=== PATIENT | male | born 1985 | race Caucasian/White ===

== ENCOUNTER 2017-07-13 21:57 | Emergency (ER) | payer OTHER ==
[~2017-07-13] VITALS: Ht 177.8 cm; Wt 103.7 kg
[2017-07-13 22:05] VITALS: TEMP 36.7; Ht 177.8 cm; Wt 103.7 kg
[2017-07-13] MEDS ORDERED: MoRPHine SULFATE 10 MG/ML CARP/VIAL IM STA (22:37)
[2017-07-13] MEDS ORDERED: XYLOCAINE 1%/SOD BICARB 20 ML VIAL INFIL ONE (22:45)
[2017-07-13] MEDS ORDERED: LIDOCAINE/EPINEPHRINE 1% 20 ML VIAL INFIL ONE (22:45)
[2017-07-13] MEDS ORDERED: MoRPHine SULFATE 4 MG/ML 1 ML CARP\\VIAL ONE (22:48)
[2017-07-13] MEDS ORDERED: DIPHTHERIA/TETANUS/PERTUSSIS 0.5 ML SYR/VIAL IM. ONE (23:30)
[2017-07-14 00:55] VITALS: BP 161/101; PULSE 89
[2017-07-14] MEDS ORDERED: CEPHALEXIN 500MG HOME PACK 1 EA BTL PO ONE (01:00)
[2017-07-14] MEDS ORDERED: CEPH500C PO (01:07)
--- NOTE | 2017-07-14 01:08 | EMERGENCY ROOM VISIT NOTE ---
History First contact with patient: 22:16 Chief Complaint: LACERATION/CUT (NON-SUTURE) Stated Complaint: CUT LF HAND W/CIRCULAR SAW Nursing Triage Summary: Cut left hand with circular saw History of Present Illness The patient is a 32 year old male who presents to the Emergency Room with complaints of a laceration of the left hand. The patient states that just prior to arrival, he was using a circular saw and it kicked back and cut his left hand. He reports 10/10 pain in the hand. He denies any numbness, tingling or weakness. He is unsure of his tetanus status. He denies any active bleeding. Review of Systems A complete 10 point review of systems was reviewed with the patient with pertinent positives and negatives as per history of present illness. All else were negative. Past Medical/Surgical History Medical Problems: (1) Hypertension Family History Heart disease Kidney disease Social History Smoking Status: Current Every Day Smoker Drug Use: none Marital Status: single Housing Status: lives with significant other Occupation Status: employed Current/Historical Medications Scheduled Cephalexin Monohydrate (Keflex), 500 MG PO QID Physical Exam Vital Signs Date Time Temp Pulse Resp B/P (MAP) Pulse Ox O2 Delivery O2 Flow Rate FiO2 07/14/17 01:50 18 99 07/14/17 00:55 89 19 161/101 99 07/13/17 22:05 36.7 84 18 168/102 97 Room Air Physical Exam VITALS: Vitals are noted on the nurse's note and reviewed by myself. Vital signs stable. GENERAL: This is a 32-year-old male, in no acute distress, nondiaphoretic, well- developed well-nourished. SKIN: There is a 6 cm jagged laceration across the left thenar eminence. The laceration extends down to the muscle, but there is no obvious injury to the muscle. There is no obvious tendon injury. There is no active bleeding. MUSCULOSKELETAL: Full range of motion of the left hand and no fingers. Strength in the left thumb 5/5. NEURO: Patient was alert and oriented to person place and time. Normal sensation to light and sharp touch. Medical Decision & Procedures ER Provider Diagnostic Interpretation: HAND X-RAY: Soft tissue injury with no fracture or foreign body. Medications Administered Medications (Trade) Dose Ordered Sig/It Route Start Time Stop Time Status Last Admin Dose Admin Morphine Sulfate (MoRPHine SULFATE INJ) 8 mg STK-MED ONCE .ROUTE 07/13/17 22:48 07/13/17 22:49 DC 07/13/17 22:50 8 MG Diphtheria/ Pertussis/Tetanus Vacc (Adacel Inj) 0.5 ml ONCE ONCE IM. 07/13/17 23:30 07/13/17 23:31 DC 07/13/17 23:30 0.5 ML Cephalexin Monohydrate (Keflex 500MG Home Pack) 1 homepack NOW ONCE PO 07/14/17 01:00 07/14/17 01:04 DC 07/14/17 01:00 1 HOMEPACK Procedure Verbal consent was obtained to perform the procedure. Using sterile technique the wound was cleaned with Betadine. The area was sterilely draped. 8 ml of 1 % buffered lidocaine was used to anesthetize the left hand laceration. Once the patient was anesthetized, the wound was copiously irrigated under pressure with sterile saline. The wound was explored as noted in the physical exam. The laceration was repaired using 9 simple interrupted 4-0 nylon sutures with the wound edges being well approximated. The patient tolerated the procedure well. Hemostasis was achieved. No complications were met. Medical Decision The patient was evaluated as above. He was given morphine for pain. He sustained a laceration to the left hand. This does appear to be down to the muscle, but there is no obvious muscle injury or tendon injury. Strength is normal on exam. Laceration was repaired as above. He was given an Adacel booster. Patient will be placed on Keflex due to the depth of the laceration. He does have a documented allergy to penicillin, but does not recall ever having an allergic reaction to penicillin. He was placed in a Velcro thumb spica splint and instructed to follow-up with the hand surgeon. He was encouraged to return here for any signs of infection or other new/concerning symptoms. He verbalized understanding of my assessment and treatment plan and was discharged home in good condition. Blood Pressure Screening Patient's blood pressure: Elevated blood pressure Blood pressure disposition: Elevated BP felt to be situational Impression Primary Impression: Laceration of hand Departure Information Dispostion Home / Self-Care Condition GOOD Prescriptions Cephalexin Monohydrate (Keflex) 500 Mg Cap 500 MG PO QID for 7 Days, #28 CAP Prov: Nayely Lee ., LICHA 07/14/17 Referrals Glenn Sevilla M.D. (PCP) Cullen Heart MD Patient Instructions My [facility] Additional Instructions You have received 9 sutures on your hand. These sutures are NOT dissolvable and WILL need to be removed by a health care provider. You will need follow-up with the hand surgeon, Dr. Heart prior to this. Call this number to schedule follow-up tomorrow morning. You were prescribed Keflex to be taken 4 times daily for 7 days. This is an antibiotic. All antibiotics have the potential to cause diarrhea. Stop this medication and contact a medical provider if you were to develop any significant adverse side effects including: wheezing, shortness of breath, passing out, vomiting, or a diffuse rash. Always take antibiotics as directed and COMPLETE the ENTIRE course regardless of the improvement of your symptoms. Proper wound care is essential for adequate wound healing and infection prevention. You can shower and clean the wound with soap and water. Do not scour over the wound, pat dry with a towel. Do not submerse the wound (i.e. bathe or dish wash) until the sutures have been removed. You can use an antibiotic ointment with a dressing over the wound for the next 3-4 days. After this time you may leave the wound dry and open to the air. If crust develops over the wound you can use a Q-tip to apply a 1:1 peroxide:water solution to clean the wound. Look for signs of infection of the wound including: increased pain, swelling, foul discharge, streaking, or increased temperature. If any of these are noticed you should return to the Emergency Department for further assessment and treatment. As with any laceration you may have received nerve damage to the surrounding tissues. This damage may or may not be permanent. You should keep the area covered with sunscreen for the first 6 months to 1 year when at risk for exposure to help minimize scarring. You can also use scar reducing creams or Vitamin E oil to help minimize scarring. For pain control, you can use the following [id number] medicines (if >12 yo): - Regular strength (325mg/tab) Tylenol (acetaminophen) 2 tabs every 4-6 hours as needed. Do not exceed 12 tablets in a 24 hour period. Avoid taking more than 4 grams (4000 mg) of Tylenol per day. This includes any other sources of acetaminophen you may take on a regular basis. - Regular strength (200 mg/tab) Advil (ibuprofen) 1-2 tabs every 4-6 hours as needed. Do not exceed a dose of 3200 mg per day. Keep the splint in place until follow-up with Dr. Heart. You may remove the splint to shower and wash the hand. Return to the emergency department if your symptoms worsen despite treatment course outlined above. Problem Qualifiers Primary Impression: Laceration of hand Encounter type: initial encounter Foreign body presence: without foreign body Laterality: left Qualified Codes: S61.412A - Laceration without foreign body of left hand, initial encounter
[2017-07-14 01:50] VITALS: O2SAT 99
--- NOTE | 2017-07-14 06:51 | DIAGNOSTIC IMAGING REPORT ---
LEFT HAND MIN 3 VIEWS ROUTINE HISTORY: 32 years-old Male acute left hand laceration COMPARISON: None available TECHNIQUE: 3 views of the left hand FINDINGS: There is positive ulnar variance of 5 mm. Mild degenerative changes are seen within the first carpal metacarpal joint. No acute fracture or dislocation is identified. There is moderate soft tissue swelling along the lateral aspect of the first digit with subcutaneous emphysema and skin irregularity compatible with penetrating trauma. There is no radiopaque foreign body identified. IMPRESSION: 1. Moderate soft tissue swelling with skin irregularity and subcutaneous emphysema involving the lateral aspect of the first digit compatible with history of penetrating injury. No acute bony abnormality or radiopaque foreign body. 2. Incidental note is made of 5 mm positive ulnar variance which has been reported to contribute to ulnar impaction syndrome and TFCC pathology. The above report was generated using voice recognition software. It may contain grammatical, syntax or spelling errors. Electronically signed by: Michael Blanton M.D. 07/14/2017 6:49 AM Dictated Date/Time: 07/14/2017 6:46 AM
== END 2017-07-14 01:50 | disposition home or self-care (01) ==
LOC: C.EDB 21:58 → C.EDC 07-14 01:50
DX: S61.412A Laceration without foreign body of left hand, initial encounter (principal); W31.2XXA Contact with powered woodworking and forming machines, initial encounter; Z23 Encounter for immunization; I10 Essential (primary) hypertension; F17.200 Nicotine dependence, unspecified, uncomplicated; Z82.49 Family history of ischemic heart disease and other diseases of the circulatory system; Z84.1 Family history of disorders of kidney and ureter

== ENCOUNTER 2017-12-30 11:38 | Inpatient (IN) | payer OTHER ==
[~2017-12-30] VITALS: Ht 177.8 cm; Wt 80.0 kg
[2017-12-30] MEDS ORDERED: SODIUM CHLORIDE 0.9% 1000ML 1,000 ML IV STA ×2 (12:30→13:44)
[2017-12-30] MEDS ORDERED: ONDANSETRON INJ 2 MG/ML 2 ML VIAL IV STA (12:37)
[2017-12-30] MEDS ORDERED: KETOROLAC TROMETHAMINE 30 MG/ML VIAL IV STA (12:37)
--- NOTE | 2017-12-30 12:46 | EMERGENCY ROOM VISIT NOTE ---
History Report prepared by Jesica: Mynor Finch Under the Supervision of: Dr. Keshav Massey M.D. First contact with patient: 11:58 Chief Complaint: DIZZY Stated Complaint: DIZZY Nursing Triage Summary: pt to the ED with c/o dizziness with gets worse with movement pt brought to triage in wheelchair and stated that he is going ot pass out, pt became diaphoretic and then passed out in triage, pt taken to room A2 and placed on cardiac rn History of Present Illness The patient is a 32 year old male with a past medical history of CKD, and HTN who presents to the Emergency Room with complaints of waxing and waning dizziness beginning a few days ago. His dizziness is worsened with movement. The patient also complains of nausea and sinus congestion. He vomited once this morning. Per significant other, the patient passed out upon arrival to the ED today. She states that he was already in his wheelchair at this time, and did not fall or hit his head. The patient did not have a flu shot this year. He denies sore throat, or cough. He states that he has not been eating or drinking much recently. The patient notes that he has a history of IV drug abuse, and recently got out of rehab. Source of History: patient Onset: A few days ago Quality: other (dizziness) Timing: waxes/wanes Modifying Factors (Worsening): movement Associated Symptoms: + nausea, No sorethroat, No cough Note: Additional symptoms: sinus congestion. Review of Systems See HPI for pertinent positives and negatives. A total of ten systems were reviewed and were otherwise negative. Past Medical & Surgical Medical Problems: (1) Hypertension Family History Heart disease Kidney disease Social History Smoking Status: Current Every Day Smoker Drug Use: none Marital Status: single Housing Status: lives with significant other Occupation Status: employed Current/Historical Medications Scheduled [Blood Pressure], Unknown Dose PO UD Allergies Coded Allergies: Brompheniramine (Verified Allergy, Unknown, 12/30/17) Penicillins (Verified Allergy, Unknown, unknown, 12/30/17) Phenylpropanolamine (Verified Allergy, Unknown, 12/30/17) Physical Exam Vital Signs Date Time Temp Pulse Resp B/P (MAP) Pulse Ox O2 Delivery O2 Flow Rate FiO2 12/30/17 14:55 98 Room Air 12/30/17 14:37 82 20 119/88 98 Room Air 12/30/17 12:53 75 16 106/68 12/30/17 12:23 72 12/30/17 11:55 98 Room Air 12/30/17 11:39 36.4 70 20 109/73 98 Physical Exam GENERAL: Awake, appears under the weather. Arousable. NAD HENT: Normocephalic, atraumatic. EYES: Normal conjunctiva. Sclera non-icteric. NECK: Supple. No nuchal rigidity. FROM. RESPIRATORY: CTAB, no rhonchi, wheezing, crackles CARDIAC: RRR, no MRG ABDOMEN: Soft, NTND, BS+ MSK: No chest wall TTP, no LE edema NEURO: CN 2-12 intact, 5/5 upper and lower extremity strength, no dysmetria, no drift, good finger to nose, no sensory deficits. SKIN: No rash or jaundice noted. Medical Decision & Procedures ER Provider Diagnostic Interpretation: Radiology results as stated below per my review and radiologist interpretation: CHEST ONE VIEW PORTABLE FINDINGS: Cardiomediastinal silhouette normal. Lungs and pleural spaces clear. Osseous structures normal. Upper abdomen normal. IMPRESSION: 1. No acute cardiopulmonary disease. Electronically signed by: Mark Byrd M.D. 12/30/2017 1:11 PM (RENAL)RETROPERITON COMP, DUPLEX RENAL ARTERY FINDINGS: Right kidney: Echogenic parenchyma. A 2.1 cm anechoic cyst noted at the lower pole essentially with a single thin septation (Bosniak 2). Right kidney measures 10.6 cm. No hydronephrosis. No convincing evidence of calculus or mass. Intrarenal resistive indices range from 0.55 to 0.68. Normal intrarenal arterial waveforms. Renal artery patent with peak systolic velocity 34 cm/s proximally, 32 cm/s in the midportion, and 31 cm/s distally. Renal vein patent. Left kidney: Echogenic parenchyma. Possible cyst in the interpolar region. Left kidney measures 9.7 cm. No hydronephrosis. No convincing evidence of calculus or mass. Intrarenal resistive indices range from 0.52 to 0.59. Normal intrarenal arterial waveforms. Renal artery patent with peak systolic velocity 51 cm/s proximally, 35 cm/s in the midportion, and 31 cm/s distally. Renal vein patent. Abdominal aorta: Patent. Peak systolic velocity 107 cm/s. Ratio of right renal artery PSV/aortic PSV: 0.32. Ratio of left renal artery PSV/aortic PSV: 0.48. Bladder: Circumferential wall thickening suggested allowing for underdistention. Other: None. Reference ranges: Normal main renal artery peak systolic velocity less than 180 cm/s. Ratio of renal artery PSV to aortic PSV less than 3.5 equates to normal or less than 60% stenosis. IMPRESSION: 1. Circumferential bladder wall thickening could be due to underdistention or suggest cystitis correlate with urinalysis. 2. Echogenic renal parenchyma suggests medical renal disease. No hydronephrosis. 3. No evidence of renal artery stenosis. Patent renal arteries and veins. 4. Normal intrarenal resistive indices. Electronically signed by: Mark Byrd M.D. 12/30/2017 4:59 PM Laboratory Results 12/30/17 12:50 Red Blood Count 5.38, Mean Corpuscular Volume 87.5, Mean Corpuscular Hemoglobin 30.3, Mean Corpuscular Hemoglobin Concent 34.6, Mean Platelet Volume 11.0, Neutrophils (%) (Auto) 82.8, Lymphocytes (%) (Auto) 9.6, Monocytes (%) (Auto) 6.6, Eosinophils (%) (Auto) 0.6, Basophils (%) (Auto) 0.2, Neutrophils # (Auto) 10.30, Lymphocytes # (Auto) 1.19, Monocytes # (Auto) 0.82, Eosinophils # (Auto) 0.07, Basophils # (Auto) 0.02 12/30/17 12:50 Test 12/30/17 12:00 12/30/17 12:40 12/30/17 12:50 12/30/17 14:55 Influenza Type A Antigen Neg for Influ A (NEG) Influenza Type B Antigen Neg for Influ B (NEG) Erythrocyte Sedimentation Rate 27 mm/hr (0-14) White Blood Count 12.43 K/uL (4.8-10.8) Red Blood Count 5.38 M/uL (4.7-6.1) Hemoglobin 16.3 g/dL (14.0-18.0) Hematocrit 47.1 % (42-52) Mean Corpuscular Volume 87.5 fL (80-100) Mean Corpuscular Hemoglobin 30.3 pg (25-34) Mean Corpuscular Hemoglobin Concent 34.6 g/dl (32-36) Platelet Count 274 K/uL (130-400) Mean Platelet Volume 11.0 fL (7.4-10.4) Neutrophils (%) (Auto) 82.8 % Lymphocytes (%) (Auto) 9.6 % Monocytes (%) (Auto) 6.6 % Eosinophils (%) (Auto) 0.6 % Basophils (%) (Auto) 0.2 % Neutrophils # (Auto) 10.30 K/uL (1.4-6.5) Lymphocytes # (Auto) 1.19 K/uL (1.2-3.4) Monocytes # (Auto) 0.82 K/uL (0.11-0.59) Eosinophils # (Auto) 0.07 K/uL (0-0.5) Basophils # (Auto) 0.02 K/uL (0-0.2) RDW Standard Deviation 39.8 fL (36.4-46.3) RDW Coefficient of Variation 12.4 % (11.5-14.5) Immature Granulocyte % (Auto) 0.2 % Immature Granulocyte # (Auto) 0.03 K/uL (0.00-0.02) Anion Gap 10.0 mmol/L (3-11) Est Creatinine Clear Calc Drug Dose 16.4 ml/min Estimated GFR () 11.7 Estimated GFR (Non- 10.1 BUN/Creatinine Ratio 9.4 (10-20) Calcium Level 9.2 mg/dl (8.5-10.1) Phosphorus Level 2.9 mg/dl (2.5-4.9) Magnesium Level 3.6 mg/dl (1.8-2.4) Total Bilirubin 0.9 mg/dl (0.2-1) Direct Bilirubin 0.2 mg/dl (0-0.2) Aspartate Amino Transf (AST/SGOT) 12 U/L (15-37) Alanine Aminotransferase (ALT/SGPT) 19 U/L (12-78) Alkaline Phosphatase 110 U/L (45-117) Troponin I < 0.015 ng/ml (0-0.045) C-Reactive Protein < 0.29 mg/dl (0-0.29) Total Protein 8.6 gm/dl (6.4-8.2) Albumin 4.2 gm/dl (3.4-5.0) Thyroid Stimulating Hormone (TSH) 0.370 uIu/ml (0.300-4.500) Urine Color YELLOW Urine Appearance CLEAR (CLEAR) Urine pH 8.5 (4.5-7.5) Urine Specific [place]lin 1.015 (1.000-1.030) Urine Protein 1+ (NEG) Urine Glucose (UA) NEG (NEG) Urine Ketones TRACE (NEG) Urine Occult Blood NEG (NEG) Urine Nitrite NEG (NEG) Urine Bilirubin NEG (NEG) Urine Urobilinogen NEG (NEG) Urine Leukocyte Esterase TRACE (NEG) Urine WBC (Auto) 5-10 /hpf (0-5) Urine RBC (Auto) 0-4 /hpf (0-4) Urine Hyaline Casts (Auto) 1-5 /lpf (0-5) Urine Epithelial Cells (Auto) 20-30 /lpf (0-5) Urine Bacteria (Auto) NEG (NEG) Urine Pathogenic Casts 0-3 GRANULAR CASTS /lpf (0) Test 12/30/17 15:02 Laboratory results reviewed by me Medications Administered Medications (Trade) Dose Ordered Sig/Ti Route Start Time Stop Time Status Last Admin Dose Admin Sodium Chloride 1,000 ml @ 999 mls/hr Q1H1M STAT IV 12/30/17 12:30 12/30/17 13:30 DC 12/30/17 12:51 999 MLS/HR Ketorolac Tromethamine (Toradol Inj) 30 mg NOW STAT IV 12/30/17 12:37 12/30/17 12:38 DC 12/30/17 12:51 30 MG Ondansetron HCl (Zofran Inj) 4 mg NOW STAT IV 12/30/17 12:37 12/30/17 12:38 DC 12/30/17 12:51 4 MG Sodium Chloride 1,000 ml @ 999 mls/hr Q1H1M STAT IV 12/30/17 13:44 12/30/17 14:44 DC 12/30/17 14:00 999 MLS/HR ECG Indication: other (dizziness) Rate (beats per minute): 71 Rhythm: normal sinus Findings: other (Normal axis. Normal intervals. No other STS or TWI. ) ED Course 1231: The patient was evaluated in room A2. A complete history and physical exam was performed. 1416: Upon reexamination, the patient was resting comfortably. He admits to using a lot of Motrin over the past few days. I discussed the test results and treatment plan with him. The patient will be evaluated for further management. Medical Decision The patient is a 32 year old male with a past medical history of CKD, and HTN who presents to the Emergency Room with complaints of waxing and waning dizziness beginning a few days ago. Differential diagnosis: Etiologies such as benign positional vertigo, dehydration, hypovolemia, anemia, tumor, infection, hypoglycemia, electrolyte abnormalities, cardiac sources, intracerebral event, toxicologic, neurologic, as well as others were entertained. Patient was seen and evaluated at the bedside. Patient reportedly has had some nausea with 2 episodes of vomiting within the last 2 days. Patient has felt fairly weak. Patient was complaining some lightheadedness as well as as if the room was spinning. Patient denies any recent falls and does not take any blood thinning medications. Patient is easily arousable although does appear under the weather at the bedside. Patient has a completely nonfocal neurologic exam and has no evidence of nystagmus. The patient did have blood work, EKG, troponin, and flu swab completed. The patient also did have a chest x-ray and the patient was given medications for symptom control. Patient's blood work did show acute renal failure. Patient has a non-anion gap. Upon further questioning the patient has been taking a fair amount of Motrin over the last several days. Patient has had some baseline CKD however it is acutely worse with a creatinine of 6. Patient's potassium is not elevated. Patient does have some mild hyponatremia. Additional fluids were ordered and and a Gastelum was placed to monitor urine output. A portable ultrasound of the kidneys was also ordered. Patient was admitted to the medicine service. Medication Reconcilliation Current Medication List: was personally reviewed by me Blood Pressure Screening Patient's blood pressure: Normal blood pressure Blood pressure disposition: Did not require urgent referral Consults Time Called: 1420 Consulting Physician: Dr. Henriquez - [facility] [place] [facility] [place] Returned Call: [phone] Discussed the patient's case. The patient will be evaluated for further treatment and disposition. Impression Primary Impression: Acute renal failure Additional Impressions: Dizziness Syncope Encounter for smoking cessation counseling Hypokalemia Scribe Attestation The scribe's documentation has been prepared under my direction and personally reviewed by me in its entirety. I confirm that the note above accurately reflects all work, treatment, procedures, and medical decision making performed by me. Departure Information Dispostion Being Evaluated By Hospitalist Glenn Martinez M.D. (PCP) Patient Instructions [facility] Problem Qualifiers Primary Impression: Acute renal failure Acute renal failure type: unspecified Qualified Codes: N17.9 - Acute kidney failure, unspecified Additional Impressions: Syncope Syncope type: unspecified Qualified Codes: R55 - Syncope and collapse
[2017-12-30] MEDS ORDERED: BLOOD PRESSURE PO (13:01)
[2017-12-30 13:10] LABS: BASO % 0.2 %; BASO ABS # 0.02 K/uL (0-0.2); EOS % 0.6 %; EOS ABS # 0.07 K/uL (0-0.5); HEMATOCRIT 47.1 % (42-52); HEMOGLOBIN 16.3 g/dL (14.0-18.0); IG# 0.03 K/uL (0.00-0.02); LYMPH % 9.6 %; LYMPH ABS # 1.19 K/uL (1.2-3.4); MEAN CELL VOLUME 87.5 fL (80-100); MEAN CORPUSCULAR HEMOGLOBIN 30.3 pg (25-34); MEAN CORPUSCULAR HGB CONC 34.6 g/dl (32-36); MONO % 6.6 %; MONO ABS # 0.82 K/uL (0.11-0.59); NEUT % 82.8 %; PLATELET COUNT 274 K/uL (130-400); RED CELL DISTRIBUTION WIDTH CV 12.4 % (11.5-14.5); RED CELL DISTRIBUTION WIDTH SD 39.8 fL (36.4-46.3); WHITE BLOOD COUNT 12.43 K/uL (4.8-10.8)
--- NOTE | 2017-12-30 13:13 | DIAGNOSTIC IMAGING REPORT ---
CHEST ONE VIEW PORTABLE CLINICAL HISTORY: 32 years-old Male presenting with EVALUATE ALTERED MENTAL STATUS/WEAKNESS. TECHNIQUE: Portable upright AP view of the chest was obtained. COMPARISON: 03/24/2016. FINDINGS: Cardiomediastinal silhouette normal. Lungs and pleural spaces clear. Osseous structures normal. Upper abdomen normal. IMPRESSION: 1. No acute cardiopulmonary disease. Electronically signed by: Mark Byrd M.D. 12/30/2017 1:11 PM Dictated Date/Time: 12/30/2017 1:11 PM
[2017-12-30 13:42] LABS: ALBUMIN 4.2 gm/dl (3.4-5.0); ALKALINE PHOSPHATASE 110 U/L (45-117); ALT/SGPT 19 U/L (12-78); AST/SGOT 12 U/L (15-37); BLOOD UREA NITROGEN 61 mg/dl (7-18); CALCIUM 9.2 mg/dl (8.5-10.1); CARBON DIOXIDE 37 mmol/L (21-32); CREATININE 6.54 mg/dl (0.60-1.40); GLUCOSE 119 mg/dl (70-99); PHOSPHORUS 2.9 mg/dl (2.5-4.9); POTASSIUM 3.1 mmol/L (3.5-5.1); SODIUM 131 mmol/L (136-145); TOTAL PROTEIN 8.6 gm/dl (6.4-8.2)
[2017-12-30 14:10] LABS: INFLUENZA B ANTIGEN Neg for Influ B (NEG)
[2017-12-30 14:55] VITALS: O2SAT 98; Ht 177.8 cm; Wt 80.0 kg
[2017-12-30] MEDS ORDERED: POLYETHYLENE (MIRALAX) 17 GM PACK PO PRN (15:15)
[2017-12-30] MEDS ORDERED: MAGNESIUM HYDROXIDE SUSP 30 ML UDC PO PRN (15:15)
[2017-12-30] MEDS ORDERED: ONDANSETRON INJ 2 MG/ML 2 ML VIAL IV PRN (15:15)
[2017-12-30] MEDS ORDERED: ALUMINUM/MAGNESIUM/SIMETH (MAALOX MAX) 30 ML UDC PO PRN (15:15)
[2017-12-30] MEDS ORDERED: ACETAMINOPHEN 325 MG TAB PO PRN (15:15)
[2017-12-30] MEDS ORDERED: ZOLPIDEM TARTRATE 5 MG TAB PO PRN ×2 (15:15)
--- NOTE | 2017-12-30 17:01 | DIAGNOSTIC IMAGING REPORT ---
(RENAL)RETROPERITON COMP, DUPLEX RENAL ARTERY CLINICAL HISTORY: 32 years-old Male presenting with acute renal failure. TECHNIQUE: Real-time grayscale and color and spectral Doppler ultrasound imaging of the kidneys was performed. A focused duplex Doppler examination of the renal vasculature was also performed. COMPARISON: CT from 02/25/2012 FINDINGS: Right kidney: Echogenic parenchyma. A 2.1 cm anechoic cyst noted at the lower pole essentially with a single thin septation (Bosniak 2). Right kidney measures 10.6 cm. No hydronephrosis. No convincing evidence of calculus or mass. Intrarenal resistive indices range from 0.55 to 0.68. Normal intrarenal arterial waveforms. Renal artery patent with peak systolic velocity 34 cm/s proximally, 32 cm/s in the midportion, and 31 cm/s distally. Renal vein patent. Left kidney: Echogenic parenchyma. Possible cyst in the interpolar region. Left kidney measures 9.7 cm. No hydronephrosis. No convincing evidence of calculus or mass. Intrarenal resistive indices range from 0.52 to 0.59. Normal intrarenal arterial waveforms. Renal artery patent with peak systolic velocity 51 cm/s proximally, 35 cm/s in the midportion, and 31 cm/s distally. Renal vein patent. Abdominal aorta: Patent. Peak systolic velocity 107 cm/s. Ratio of right renal artery PSV/aortic PSV: 0.32. Ratio of left renal artery PSV/aortic PSV: 0.48. Bladder: Circumferential wall thickening suggested allowing for underdistention. Other: None. Reference ranges: Normal main renal artery peak systolic velocity less than 180 cm/s. Ratio of renal artery PSV to aortic PSV less than 3.5 equates to normal or less than 60% stenosis. IMPRESSION: 1. Circumferential bladder wall thickening could be due to underdistention or suggest cystitis correlate with urinalysis. 2. Echogenic renal parenchyma suggests medical renal disease. No hydronephrosis. 3. No evidence of renal artery stenosis. Patent renal arteries and veins. 4. Normal intrarenal resistive indices. Electronically signed by: Mark Byrd M.D. 12/30/2017 4:59 PM Dictated Date/Time: 12/30/2017 4:47 PM
[2017-12-30] MEDS ORDERED: FAMOTIDINE IV INJ 20 MG in DEXTROSE 5% 100ML 100 ML IV STA (17:21)
--- NOTE | 2017-12-30 17:21 | History and Physical ---
History & Physical Date & Time of Service: Dec 30, 2017 at 17:08 Chief Complaint: DIZZY Primary Care Physician: No Doctor, Assigned History of Present Illness Source: patient, family, hospital records 32 years old man with history of hypertension, on clonidine, for the past 3 days has been having severe headache nasal stuffiness and fever. Patient started taking ibuprofen 4 tablets at a time for 4-5 times a day. He is in the morning Patient then developed dizziness weakness. Presented to the ED and had a syncope in the ER. Was found to having an acute on chronic 2016 renal failure. His creatinine was ranging between 1.8-2, we do not have any creatinine measurements between 2016 and today currently active smoker Admits to drug abuse in the past No family history of renal disease Past Medical/Surgical History Medical Problems: (1) Hypertension Status: Chronic Family History Heart disease Kidney disease Social History Smoking Status: Current Every Day Smoker Drug Use: none Marital Status: single Occupational Status: employed Multi-Drug Resistant Organisms History of MDRO: No Allergies Coded Allergies: Brompheniramine (Verified Allergy, Unknown, 12/30/17) Penicillins (Verified Allergy, Unknown, unknown, 12/30/17) Phenylpropanolamine (Verified Allergy, Unknown, 12/30/17) Home Medications Scheduled [Blood Pressure], Unknown Dose PO UD Review of Systems Constitutional: + fever, + chills, + weakness, + fatigue Eyes: No worsening of vision, No eye pain, No redness, No discharge, No diplopia, No problem reported ENT: No hearing loss, No unusual epistaxis, No nasal symptoms, No sore throat, No tinnitus, No dental problems, No trouble swallowing, No problem reported Respiratory: + shortness of breath, No cough, No sputum, No wheezing, No dyspnea on exertion, No dyspnea at rest, No hemoptysis, No problem reported Cardiovascular: No chest pain, No orthopnea, No PND, No edema, No claudication , No palpitations, No problem reported Abdomen: No pain, No nausea, No vomiting, No diarrhea, No constipation, No GI bleeding, No problem reported Musculoskeletal: + joint pain, + muscle pain, No swelling, No calf pain, No problem reported Genitourinary - Male: No hematuria, No dysuria, No urinary frequency, No urinary urgency, No urinary hesitancy, No urinary retention, No urinary incontinence, No penile discharge, No lesions, No impotence, No problem reported Neurologic: + vertigo, + problem reported (headache), No memory loss, No paralysis, No weakness, No numbness/tingling, No balance problems Psychiatric: No depression symptoms, No anhedonism, No anxiety, No insomnia, No substance abuse, No problem reported Endocrine: + fatigue, No excessive thirst, No excessive urination, No problem reported Hematologic / Lymphatic: No abnormal bleeding/bruising, No clotting problems, No swollen lymph nodes, No night sweats, No problem reported Integumentary: No rash, No itch, No new/changing skin lesions, No color change , No bleeding, No problem reported Allergic / Immunologic: No environmental allergies, No seasonal allergies, No pet sensitivities, No food allergies, No hives, No frequent infections, No poor healing, No prolonged convalescence, No problem reported Physical Exam Vital Signs Date Time Temp Pulse Resp B/P (MAP) Pulse Ox O2 Delivery O2 Flow Rate FiO2 12/30/17 14:55 98 Room Air 12/30/17 14:37 82 20 119/88 98 Room Air 12/30/17 12:53 75 16 106/68 12/30/17 12:23 72 12/30/17 11:55 98 Room Air 12/30/17 11:39 36.4 70 20 109/73 98 General Appearance: + mild distress Eyes: normal inspection, EOMI ENT: normal ENT inspection, pharynx normal Neck: supple Respiratory/Chest: chest non-tender, lungs clear, normal breath sounds, no respiratory distress, no accessory muscle use Cardiovascular: regular rate, rhythm, no edema, no gallop, no JVD, no murmur, normal peripheral pulses Abdomen/GI: normal bowel sounds, non tender, soft, no organomegaly, no pulsatile mass Back: normal inspection, no CVA tenderness, no muscle spasm, normal range of motion Extremities/Musculoskelatal: normal inspection, no calf tenderness, normal capillary refill, no pedal edema, normal range of motion 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, no motor/sensory deficits, alert, normal mood/affect, normal reflexes, oriented x 3 Skin: normal color, warm/dry, no rash Diagnostics Laboratory Results Results Past 24 Hours Test 12/30/17 12:00 12/30/17 12:40 12/30/17 12:50 2/14/18 14:55 Range/Units Influenza Type A Antigen Neg for Influ A NEG Influenza Type B Antigen Neg for Influ B NEG Erythrocyte Sedimentation Rate 27 0-14 mm/hr White Blood Count 12.43 4.8-10.8 K/uL Red Blood Count 5.38 4.7-6.1 M/uL Hemoglobin 16.3 14.0-18.0 g/dL Hematocrit 47.1 42-52 % Mean Corpuscular Volume 87.5 80-100 fL Mean Corpuscular Hemoglobin 30.3 25-34 pg Mean Corpuscular Hemoglobin Concent 34.6 32-36 g/dl Platelet Count 274 130-400 K/uL Mean Platelet Volume 11.0 7.4-10.4 fL Neutrophils (%) (Auto) 82.8 % Lymphocytes (%) (Auto) 9.6 % Monocytes (%) (Auto) 6.6 % Eosinophils (%) (Auto) 0.6 % Basophils (%) (Auto) 0.2 % Neutrophils # (Auto) 10.30 1.4-6.5 K/uL Lymphocytes # (Auto) 1.19 1.2-3.4 K/uL Monocytes # (Auto) 0.82 0.11-0.59 K/uL Eosinophils # (Auto) 0.07 0-0.5 K/uL Basophils # (Auto) 0.02 0-0.2 K/uL RDW Standard Deviation 39.8 36.4-46.3 fL RDW Coefficient of Variation 12.4 11.5-14.5 % Immature Granulocyte % (Auto) 0.2 % Immature Granulocyte # (Auto) 0.03 0.00-0.02 K/uL Sodium Level 131 136-145 mmol/L Potassium Level 3.1 3.5-5.1 mmol/L Chloride Level 84 98-107 mmol/L Carbon Dioxide Level 37 21-32 mmol/L Anion Gap 10.0 3-11 mmol/L Blood Urea Nitrogen 61 7-18 mg/dl Creatinine 6.54 0.60-1.40 mg/dl Est Creatinine Clear Calc Drug Dose 16.4 ml/min Estimated GFR () 11.7 Estimated GFR (Non- 10.1 BUN/Creatinine Ratio 9.4 10-20 Random Glucose 119 70-99 mg/dl Calcium Level 9.2 8.5-10.1 mg/dl Phosphorus Level 2.9 2.5-4.9 mg/dl Magnesium Level 3.6 1.8-2.4 mg/dl Total Bilirubin 0.9 0.2-1 mg/dl Direct Bilirubin 0.2 0-0.2 mg/dl Aspartate Amino Transf (AST/SGOT) 12 15-37 U/L Alanine Aminotransferase (ALT/SGPT) 19 12-78 U/L Alkaline Phosphatase 110 45-117 U/L Troponin I < 0.015 0-0.045 ng/ml C-Reactive Protein < 0.29 0-0.29 mg/dl Total Protein 8.6 6.4-8.2 gm/dl Albumin 4.2 3.4-5.0 gm/dl Thyroid Stimulating Hormone (TSH) 0.370 0.300-4.500 uIu/ml Urine Color YELLOW Urine Appearance CLEAR CLEAR Urine pH 8.5 4.5-7.5 Urine Specific [place] 1.015 1.000-1.030 Urine Protein 1+ NEG Urine Glucose (UA) NEG NEG Urine Ketones TRACE NEG Urine Occult Blood NEG NEG Urine Nitrite NEG NEG Urine Bilirubin NEG NEG Urine Urobilinogen NEG NEG Urine Leukocyte Esterase TRACE NEG Urine WBC (Auto) 5-10 0-5 /hpf Urine RBC (Auto) 0-4 0-4 /hpf Urine Hyaline Casts (Auto) 1-5 0-5 /lpf Urine Epithelial Cells (Auto) 20-30 0-5 /lpf Urine Bacteria (Auto) NEG NEG Urine Pathogenic Casts 0-3 GRANULAR CASTS 0 /lpf Test 12/30/17 17:05 Range/Units Impression Assessment and Plan 32 years old man with history of hypertension, on clonidine, for the past 3 days has been having severe headache nasal stuffiness and fever. Patient started taking ibuprofen 4 tablets at a time for 4-5 times a day. Patient then developed dizziness weakness. Presented to the ED and had a syncope in the ER. Was found to having an acute renal failure. Assessment Acute kidney injury and chronic kidney disease likely induced by nonsteroidal anti-inflammatory plus decreased oral intake and dehydration As per our records he has Possible chronic kidney disease stage III since 2016 Hypertension on clonidine History of drug abuse, as per patient nothing recent Tobacco abuse Plan Admit patient to [facility] IV fluid hydration Follow-up renal function closely Order renal ultrasound Ordered renal duplex rule out renal artery disease Monitor patient blood pressure CT head to evaluate the cause of his headache Consult senior application software engineer Heparin twice daily for DVT prophylaxis Pain management for his headache Rapid flu was negative, will order PCR Giving his history of IV drug abuse, ordered HIV screening, patient was consulted regarding HIV in the presence of his girlfriend in the room and he agreed to have the procedure. Patient understands that he should follow up on the results himself and he will not be called with the results of the test due to confidentiality If he continues to have headache, he will require MRA of the head without contrast Also I ordered sed rate, CRP, GERRY to rule out disease Due to the extensive ibuprofen use will start him on Pepcid for GI prophylaxis Advanced Directives Existing Living Will: No Existing Power of Compounding And Finishing Supervisor: No VTE Prophylaxis VTE Risk Assessment Done? Y/N: Yes Risk Level: Moderate
[2017-12-30] MEDS ORDERED: DiphenhydrAMINE INJ 12.5 MG in SYRINGE 0 ML IV ONE (17:30)
--- NOTE | 2017-12-30 17:44 | DIAGNOSTIC IMAGING REPORT ---
HEAD WITHOUT CONTRAST (CT) CLINICAL HISTORY: 32 years-old Male presenting with headache. TECHNIQUE: Multidetector CT imaging of the head was performed without the use of intravenous contrast. IV contrast: None. A dose lowering technique was used consistent with the principles of ALARA (as low as reasonably achievable). COMPARISON: None. CT DOSE (mGy.cm): The estimated cumulative dose is 537.48 mGy.cm. FINDINGS: E Learning Specialist topogram: Unremarkable. Ventricles and sulci normal in size. Brain parenchyma normal in appearance with preserved pitts-white differentiation. No mass effect or midline shift. No hemorrhage or acute territorial infarct. No extra-axial fluid collection. Paranasal sinuses and mastoid air cells clear. Calvarium intact. IMPRESSION: 1. No acute intracranial abnormality. Electronically signed by: Mark Byrd M.D. 12/30/2017 5:42 PM Dictated Date/Time: 12/30/2017 5:40 PM
[2017-12-30] MEDS: HYDROmorphone INJ 1 MG/ML SYR IV PRN (18:09)
[2017-12-30] MEDS ORDERED: DiphenhydrAMINE HCL 50 MG/ML VIAL IV ONE (18:30)
[2017-12-30] MEDS ORDERED: INFLUENZA ADMINISTRATION CHARGE ONE (18:30)
[2017-12-30] MEDS ORDERED: INFLUENZA VIRUS QUAD VACCINE 0.5 ML SYR IM. ONE (18:30)
[2017-12-30] MEDS ORDERED: FAMOTIDINE IV INJ 20 MG in SYRINGE 3 ML IV ONE (18:45)
[2017-12-30 19:38] LABS: INR 1.1 (0.9-1.1); PTT PATIENT 27.7 SECONDS (21.0-31.0)
[2017-12-30 20:00] VITALS: O2SAT 98
[2017-12-30] MEDS: HEPARIN SOD 5000 UNIT/0.5 ML CARP SQ SCH (22:08)
[2017-12-30 23:08] VITALS: BP 118/72; PULSE 67; TEMP 36.5; O2SAT 94
[2017-12-31] VITALS: O2SAT 98
[2017-12-31] MEDS: HYDROmorphone INJ 1 MG/ML SYR IV PRN ×2 (00:51→07:19)
[2017-12-31 07:18] VITALS: BP 130/86; PULSE 69; TEMP 36.8; O2SAT 97
[2017-12-31] MEDS: HEPARIN SOD 5000 UNIT/0.5 ML CARP SQ SCH ×2 (08:18→21:00)
[2017-12-31 09:21] LABS: BASO % 0.5 %; BASO ABS # 0.03 K/uL (0-0.2); EOS % 2.4 %; EOS ABS # 0.15 K/uL (0-0.5); HEMOGLOBIN 14.3 g/dL (14.0-18.0); IG# 0.01 K/uL (0.00-0.02); MEAN CELL VOLUME 87.7 fL (80-100); MEAN CORPUSCULAR HEMOGLOBIN 29.9 pg (25-34); MEAN PLATELET VOLUME 10.6 fL (7.4-10.4); MONO % 8.6 %; MONO ABS # 0.54 K/uL (0.11-0.59); NEUT % 53.3 %; NEUT ABS # 3.36 K/uL (1.4-6.5); PLATELET COUNT 231 K/uL (130-400); RED CELL DISTRIBUTION WIDTH CV 12.4 % (11.5-14.5); RED CELL DISTRIBUTION WIDTH SD 39.7 fL (36.4-46.3); WHITE BLOOD COUNT 6.29 K/uL (4.8-10.8)
[2017-12-31 10:05] LABS: ALBUMIN 3.5 gm/dl (3.4-5.0); CALCIUM 8.7 mg/dl (8.5-10.1); CREATININE 6.25 mg/dl (0.60-1.40); PHOSPHORUS 3.9 mg/dl (2.5-4.9); TOTAL PROTEIN 7.2 gm/dl (6.4-8.2)
--- NOTE | 2017-12-31 12:00 | Nephrology Consultation ---
Nephrology Consultation Date & Providers Date of Consultation: Dec 31, 2017. Primary Care Provider: No Doctor, Assigned Referring Provider: Reason for Consultation Evaluation management for acute kidney injury. History of Present Illness Ok is a 32-year-old young male with past medical history significant for hypertension and stage 3 chronic kidney disease admitted to the hospital of headache found to have acute kidney injury. Nephrologic consult was requested for further management acute kidney injury. Electronic medical records including labs and imaging are reviewed in detail during patient's visit. Ok presented to the hospital with 3 days history of overall feeling poorly, headache, fever, vomiting and stuffy nose. He has been taking ibuprofen 4 tablets 4-5 times per day over last few days without any significant improvement in headache. Has been having poor p.o. intake at home due to nausea and vomiting. Denies any hematuria or dysuria at home but notice decrease in urine output over last few days. He has been getting dizzy and lightheaded and presented to the ER where he had an episode of syncope. EKG was negative for any idea CT head was negative for any acute intracranial changes. Chest x-ray was unremarkable. Lab showed acute kidney injury, creatinine was 6.5. Potassium was low at 131, sodium 131. Renal ultrasound showed right kidney 10.6, left kidney 9.7 cm, both kidneys are echogenic suggestive of chronic kidney disease. Urinalysis positive for 1+ proteinuria but no hematuria or pyuria had to had few granular cast and urine. He was given a dose of Toradol and normal saline. Has history of hypertension, he was on clonidine. Has history of chronic kidney disease, baseline creatinine has been around 1.8-2 however last lab was from 2005, seems to have CKD at least since 2004 when creatinine was 1.4. Wound he reports having kidney problem has a young child however over last few years he was not aware that he has low kidney function. Unclear etiology for CKD, possibly hypertensive nephrosclerosis versus microvascular disease. Could be due to chronic interstitial nephritis with chronic NSAID use. Has history of nephrolithiasis previously had 2 episodes of renal colic and passed stone. Does not have any remaining stone. No history of autoimmune disorder. Is a active smoker smokes more than 1 pack per day. He works as mechanics. No family history of chronic kidney disease or end-stage renal disease. Currently he denies any specific symptoms. Overall has been feeling better. He noticed increased urine output since admission. Allergies Coded Allergies: Brompheniramine (Verified Allergy, Unknown, 12/30/17) Penicillins (Verified Allergy, Unknown, unknown, 12/30/17) Phenylpropanolamine (Verified Allergy, Unknown, 12/30/17) Inpatient Medications Current Inpatient Medications Medications (Trade) Dose Ordered Sig/Ti Route Start Time Stop Time Status Last Admin Dose Admin Acetaminophen (Tylenol Tab) 650 mg Q4H PRN PO 12/30/17 15:15 01/29/18 15:14 Al Hydrox/Mg Hydrox/Simethicone (Maalox Max Susp) 15 ml Q4H PRN PO 12/30/17 15:15 01/29/18 15:14 Magnesium Hydroxide (Milk Of Magnesia Susp) 30 ml Q6H PRN PO 12/30/17 15:15 01/29/18 15:14 Polyethylene (Miralax Powder Packet) 17 gm DAILY PRN PO 12/30/17 15:15 01/29/18 15:14 Ondansetron HCl (Zofran Inj) 4 mg Q6H PRN IV 12/30/17 15:15 01/29/18 15:14 12/30/17 18:35 4 MG Heparin Sodium (Porcine) (Heparin Sq 5000 Unit/0.5ml) 5,000 unit Q12 SQ 12/30/17 21:00 01/29/18 20:59 Zolpidem Tartrate (Ambien Tab) 5 mg HSZ PRN PO 12/30/17 15:15 01/29/18 15:14 12/31/17 00:52 5 MG Hydromorphone HCl (Dilaudid Inj) 1 mg Q6H PRN IV 12/30/17 17:00 01/13/18 16:59 12/31/17 07:19 1 MG Family History Heart disease Kidney disease No family history of chronic kidney disease or end-stage renal disease. Social History Smoking Status: Current Every Day Smoker Drug Use: none Marital Status: single Occupation: employed Current active smoker Review of Systems A complete review of systems was performed. Pertinent positives are noted above. All other systems are negative. Physical Exam Date Time Temp Pulse Resp B/P (MAP) Pulse Ox O2 Delivery O2 Flow Rate FiO2 12/31/17 08:00 Room Air 12/31/17 07:18 36.8 69 18 130/86 (101) 97 Room Air 12/31/17 00:00 98 Room Air 12/30/17 23:08 36.5 67 18 118/72 (87) 94 Room Air 12/30/17 20:00 98 Room Air 12/30/17 17:40 70 133/82 98 12/30/17 17:08 70 133/82 98 Room Air 12/30/17 14:55 98 Room Air 12/30/17 14:37 82 20 119/88 98 Room Air 12/30/17 12:53 75 16 106/68 12/30/17 12:23 72 12/30/17 11:55 98 Room Air 12/30/17 11:39 36.4 70 20 109/73 98 GENERAL: Young male, AAA x 3, pleasant, healthy-appearing, not in any distress. HEENT: Atraumatic, normocephalic. NECK: Supple, no JVD, no carotid bruit appreciated. ENT: No sinus tenderness MOUTH and THROAT: Moist oral mucosa, no oral ulcer or pharyngeal erythema RESPIRATORY: Normal breathing efforts, no accessory muscle use, clear to auscultation bilaterally, no wheezes or rales. CARDIOVASCULAR: S1, S2 normal, rate rhythm regular. ABDOMEN: Soft, nontender, positive bowel sound. MUSCULOSKELETAL: No CVA tenderness. No joint swelling, erythema or tenderness. Normal range of motion. SKIN: No skin rash EXTREMITY: No lower extremity edema NEURO: No gross focal neurological deficit, speech fluent. PSYCHIATRY: Normal mood and judgment Laboratory Results Last 24 Hours Test 12/30/17 12:00 12/30/17 12:40 12/30/17 12:50 12/30/17 14:55 Influenza Type A Antigen Neg for Influ A Influenza Type B Antigen Neg for Influ B Erythrocyte Sedimentation Rate 27 mm/hr White Blood Count 12.43 K/uL Red Blood Count 5.38 M/uL Hemoglobin 16.3 g/dL Hematocrit 47.1 % Mean Corpuscular Volume 87.5 fL Mean Corpuscular Hemoglobin 30.3 pg Mean Corpuscular Hemoglobin Concent 34.6 g/dl Platelet Count 274 K/uL Mean Platelet Volume 11.0 fL Neutrophils (%) (Auto) 82.8 % Lymphocytes (%) (Auto) 9.6 % Monocytes (%) (Auto) 6.6 % Eosinophils (%) (Auto) 0.6 % Basophils (%) (Auto) 0.2 % Neutrophils # (Auto) 10.30 K/uL Lymphocytes # (Auto) 1.19 K/uL Monocytes # (Auto) 0.82 K/uL Eosinophils # (Auto) 0.07 K/uL Basophils # (Auto) 0.02 K/uL RDW Standard Deviation 39.8 fL RDW Coefficient of Variation 12.4 % Immature Granulocyte % (Auto) 0.2 % Immature Granulocyte # (Auto) 0.03 K/uL Sodium Level 131 mmol/L Potassium Level 3.1 mmol/L Chloride Level 84 mmol/L Carbon Dioxide Level 37 mmol/L Anion Gap 10.0 mmol/L Blood Urea Nitrogen 61 mg/dl Creatinine 6.54 mg/dl Est Creatinine Clear Calc Drug Dose 16.4 ml/min Estimated GFR () 11.7 Estimated GFR (Non- 10.1 BUN/Creatinine Ratio 9.4 Random Glucose 119 mg/dl Calcium Level 9.2 mg/dl Phosphorus Level 2.9 mg/dl Magnesium Level 3.6 mg/dl Total Bilirubin 0.9 mg/dl Direct Bilirubin 0.2 mg/dl Aspartate Amino Transf (AST/SGOT) 12 U/L Alanine Aminotransferase (ALT/SGPT) 19 U/L Alkaline Phosphatase 110 U/L Troponin I < 0.015 ng/ml C-Reactive Protein < 0.29 mg/dl Total Protein 8.6 gm/dl Albumin 4.2 gm/dl Thyroid Stimulating Hormone (TSH) 0.370 uIu/ml Urine Color YELLOW Urine Appearance CLEAR Urine pH 8.5 Urine Specific [place] 1.015 Urine Protein 1+ Urine Glucose (UA) NEG Urine Ketones TRACE Urine Occult Blood NEG Urine Nitrite NEG Urine Bilirubin NEG Urine Urobilinogen NEG Urine Leukocyte Esterase TRACE Urine WBC (Auto) 5-10 /hpf Urine RBC (Auto) 0-4 /hpf Urine Hyaline Casts (Auto) 1-5 /lpf Urine Epithelial Cells (Auto) 20-30 /lpf Urine Bacteria (Auto) NEG Urine Pathogenic Casts 0-3 GRANULAR CASTS /lpf Test 12/30/17 17:05 12/30/17 19:15 12/31/17 08:26 HIV (1&2) Ab and P24 Ag, 4th Gener NEG Prothrombin Time 11.2 SECONDS Prothromb Time International Ratio 1.1 Activated Partial Thromboplast Time 27.7 SECONDS Partial Thromboplastin Ratio 1.1 White Blood Count 6.29 K/uL Red Blood Count 4.79 M/uL Hemoglobin 14.3 g/dL Hematocrit 42.0 % Mean Corpuscular Volume 87.7 fL Mean Corpuscular Hemoglobin 29.9 pg Mean Corpuscular Hemoglobin Concent 34.0 g/dl Platelet Count 231 K/uL Mean Platelet Volume 10.6 fL Neutrophils (%) (Auto) 53.3 % Lymphocytes (%) (Auto) 35.0 % Monocytes (%) (Auto) 8.6 % Eosinophils (%) (Auto) 2.4 % Basophils (%) (Auto) 0.5 % Neutrophils # (Auto) 3.36 K/uL Lymphocytes # (Auto) 2.20 K/uL Monocytes # (Auto) 0.54 K/uL Eosinophils # (Auto) 0.15 K/uL Basophils # (Auto) 0.03 K/uL RDW Standard Deviation 39.7 fL RDW Coefficient of Variation 12.4 % Immature Granulocyte % (Auto) 0.2 % Immature Granulocyte # (Auto) 0.01 K/uL Impression (1) Acute kidney injury (2) Proteinuria (3) Hypertension (4) Syncope (5) Hypokalemia 32-year-old young male with past medical history significant for hypertension and stage III CKD baseline creatinine around 1.8-2.0 possibly secondary to microvascular disease versus hypertensive nephropathy. Admitted to the hospital with headache and syncopal episode, stuffy nose and fever. Has been having poor p.o. intake at home. Has been taking ibuprofen 4 tabs every 4-5 hours. Denies any voiding symptom or hematuria. On admission he was found to have acute kidney injury, creatinine was 6.5, potassium low at 3.1. Flu swab was negative, blood culture pending CT head, chest x-ray unremarkable. Renal ultrasound without any postrenal obstruction. Urinalysis with trace proteinuria , no hematuria pyuria but had granular cast. Acute kidney injury most likely secondary to prerenal versus ATN in the setting of poor p.o. intake and heavy dose of NSAID use with underlying CKD. Ultrasound was negative for postrenal obstruction. Urinalysis is not suggestive of acute inflammatory GN. Recommendations --encourage p.o. intake, if p.o. intake is not adequate. Suggest starting on IV normal saline at 100 mL/hour as he may be entering into diuresis phase of possible ATN --check spot urine protein creatinine ratio --avoid Toradol and all NSAID --dose medications for GFR less than 10 --replace potassium with 40 mEq potassium chloride x1 dose --monitor intake and output --monitor renal function with daily renal panel for sign of recovery --No other workup at this point Thank you for allowing me to participate in your patient's care. It was a pleasure to see Ok
[2017-12-31] MEDS: SODIUM CHLORIDE 0.9% 1000ML 1,000 ML IV SCH ×2 (13:05→22:07)
--- NOTE | 2017-12-31 13:48 | Progress Note ---
Progress Note Date of Service Dec 31, 2017. Progress Note Patient has [facility] PCP (confirmed this with patient)- Spoke with Dr. Brantley , [facility] service will take over patient care.
[2017-12-31 15:01] VITALS: BP 137/81; PULSE 71; TEMP 36.6; O2SAT 94
--- NOTE | 2017-12-31 17:39 | Progress Note ---
Medicine Progress Note Date & Time of Visit: Dec 31, 2017 at 16:58. Subjective Pt was seen and examined Lying in bed with no distress Pt said that he feels fine He said that his headache improve He said that he does not feel as congested as yesterday Denies any chest pain, palpitation, dizziness and SOB Objective Last 8 Hrs Date Time Temp Pulse Resp B/P (MAP) Pulse Ox O2 Delivery O2 Flow Rate FiO2 12/31/17 16:00 Room Air 12/31/17 15:01 36.6 71 20 137/81 (99) 94 Room Air Physical Exam: General- no acute distress Head- atraumatic Eyes- PERRL, EOMI ENT- oropharynx clear Neck- supple, no JVD Lungs- clear to auscultation Heart- regular rhythm Abdomen- normal bowel sounds, soft Extremities- no pretibial edema, no calf tenderness Neuro- alert, oriented x 3; PERRL, EOMI; no facial palsy Skin- warm & dry Laboratory Results: Last 24 Hours Test 12/30/17 17:05 12/30/17 19:15 12/31/17 08:26 HIV (1&2) Ab and P24 Ag, 4th Gener NEG Prothrombin Time 11.2 SECONDS Prothromb Time International Ratio 1.1 Activated Partial Thromboplast Time 27.7 SECONDS Partial Thromboplastin Ratio 1.1 White Blood Count 6.29 K/uL Red Blood Count 4.79 M/uL Hemoglobin 14.3 g/dL Hematocrit 42.0 % Mean Corpuscular Volume 87.7 fL Mean Corpuscular Hemoglobin 29.9 pg Mean Corpuscular Hemoglobin Concent 34.0 g/dl Platelet Count 231 K/uL Mean Platelet Volume 10.6 fL Neutrophils (%) (Auto) 53.3 % Lymphocytes (%) (Auto) 35.0 % Monocytes (%) (Auto) 8.6 % Eosinophils (%) (Auto) 2.4 % Basophils (%) (Auto) 0.5 % Neutrophils # (Auto) 3.36 K/uL Lymphocytes # (Auto) 2.20 K/uL Monocytes # (Auto) 0.54 K/uL Eosinophils # (Auto) 0.15 K/uL Basophils # (Auto) 0.03 K/uL RDW Standard Deviation 39.7 fL RDW Coefficient of Variation 12.4 % Immature Granulocyte % (Auto) 0.2 % Immature Granulocyte # (Auto) 0.01 K/uL Sodium Level 134 mmol/L Potassium Level 4.0 mmol/L Chloride Level 91 mmol/L Carbon Dioxide Level 35 mmol/L Anion Gap 8.0 mmol/L Blood Urea Nitrogen 57 mg/dl Creatinine 6.25 mg/dl Est Creatinine Clear Calc Drug Dose 17.2 ml/min Estimated GFR () 12.4 Estimated GFR (Non- 10.7 BUN/Creatinine Ratio 9.2 Random Glucose 123 mg/dl Calcium Level 8.7 mg/dl Phosphorus Level 3.9 mg/dl Magnesium Level 3.5 mg/dl Total Bilirubin 0.4 mg/dl Aspartate Amino Transf (AST/SGOT) 18 U/L Alanine Aminotransferase (ALT/SGPT) 23 U/L Alkaline Phosphatase 91 U/L Total Protein 7.2 gm/dl Albumin 3.5 gm/dl Globulin 3.7 gm/dl Albumin/Globulin Ratio 1.0 Assessment & Plan MILENA on CKD Stage 3 Possible related to dehydration from poor oral intake and in the setting of NSAID induced Baseline Creatine seems to be between 1.8 to 2 back on 08/01 Creatine on admission 6.5 Creatine 6.25 today Renal U/S showed echogenic renal parenchyma suggests medical renal disease and no hydronephrosis. No evidence of renal artery stenosis. Nephrology on board Recommended to continue IVF Continue avoiding nephrotoxic agents Will hold HCTZ/Lisinopril HTN Will review his meds BP stable Tobacco Abuse Counseling on smoking cessation Electrolytes Imbalance Monitor electrolytes Headache CT head showed no acute abnormality Improved DVT px On heparin subq CODE STATUS FULL CODE Consultants: Nephrology Current Inpatient Medications: Current Inpatient Medications Medications (Trade) Dose Ordered Sig/Ti Route Start Time Stop Time Status Last Admin Dose Admin Acetaminophen (Tylenol Tab) 650 mg Q4H PRN PO 12/30/17 15:15 01/29/18 15:14 Al Hydrox/Mg Hydrox/Simethicone (Maalox Max Susp) 15 ml Q4H PRN PO 12/30/17 15:15 01/29/18 15:14 Magnesium Hydroxide (Milk Of Magnesia Susp) 30 ml Q6H PRN PO 12/30/17 15:15 01/29/18 15:14 Polyethylene (Miralax Powder Packet) 17 gm DAILY PRN PO 12/30/17 15:15 01/29/18 15:14 Ondansetron HCl (Zofran Inj) 4 mg Q6H PRN IV 12/30/17 15:15 01/29/18 15:14 12/30/17 18:35 4 MG Heparin Sodium (Porcine) (Heparin Sq 5000 Unit/0.5ml) 5,000 unit Q12 SQ 12/30/17 21:00 01/29/18 20:59 Zolpidem Tartrate (Ambien Tab) 5 mg HSZ PRN PO 12/30/17 15:15 01/29/18 15:14 12/31/17 00:52 5 MG Hydromorphone HCl (Dilaudid Inj) 1 mg Q6H PRN IV 12/30/17 17:00 01/13/18 16:59 12/31/17 07:19 1 MG Sodium Chloride 1,000 ml @ 100 mls/hr Q10H IV 12/31/17 12:30 01/30/18 12:29 12/31/17 13:05 100 MLS/HR
[2017-12-31] MEDS ORDERED: CTP/1 PO (18:56)
[2017-12-31] MEDS: CLONIDINE HCL 0.1 MG TAB PO SCH (21:28)
[2018-01-01 00:14] VITALS: BP 118/72; PULSE 73; TEMP 36.6; O2SAT 97
[2018-01-01 08:03] LABS: CALCIUM 8.7 mg/dl (8.5-10.1); CREATININE 4.27 mg/dl (0.60-1.40); POTASSIUM 3.7 mmol/L (3.5-5.1)
[2018-01-01 08:39] VITALS: BP 104/67; PULSE 67; TEMP 36.5; O2SAT 98
[2018-01-01] MEDS: HEPARIN SOD 5000 UNIT/0.5 ML CARP SQ SCH ×2 (09:00→21:00)
[2018-01-01] MEDS: SODIUM CHLORIDE 0.9% 1000ML 1,000 ML IV SCH ×2 (09:13→17:51)
[2018-01-01] MEDS: CLONIDINE HCL 0.1 MG TAB PO SCH ×2 (09:14→21:21)
--- NOTE | 2018-01-01 11:40 | Nephrology Progress Note ---
Nephrology Progress Note Date of Service Jan 01, 2018. Chief Complaint Follow-up for acute kidney injury. Subjective Ok was seen and examined in his room this morning. He was otherwise feeling fine, the appetite normal, has been drinking liquids. He has been voiding normally. Renal function improve significantly to creatinine 4.5 this morning, other electrolyte acceptable. Blood pressure well controlled. Review of Systems A complete review of systems was performed. Pertinent positives are noted above. All other systems are negative. Vital Signs Last 8 Hrs Date Time Temp Pulse Resp B/P (MAP) Pulse Ox O2 Delivery O2 Flow Rate FiO2 01/01/18 08:39 36.5 67 18 104/67 (79) 98 Room Air 01/01/18 07:40 Room Air Last Recorded Weight Weight (Kilograms): 80.000 Physical Exam GENERAL: Young male, AAA x 3, pleasant, healthy-appearing, not in any distress. NECK: Supple, no JVD. RESPIRATORY: Normal breathing efforts, no accessory muscle use, clear to auscultation bilaterally, no wheezes or rales. CARDIOVASCULAR: S1, S2 normal, rate rhythm regular. EXTREMITY: No lower extremity edema NEURO: speech fluent. PSYCHIATRY: Normal mood and judgment Family History Heart disease Kidney disease No family history of chronic kidney disease or end-stage renal disease. Social History Smoking Status: Current every day smoker Drug Use: none Marital Status: single Occupation: employed Current active smoker Laboratory Results Past 24 Hours 01/01/18 07:04 Test 01/01/18 07:04 Anion Gap 10.0 mmol/L (3-11) Est Creatinine Clear Calc Drug Dose 25.2 ml/min Estimated GFR () 19.6 Estimated GFR (Non- 16.9 BUN/Creatinine Ratio 10.8 (10-20) Calcium Level 8.7 mg/dl (8.5-10.1) Magnesium Level 2.9 mg/dl (1.8-2.4) Allergies Coded Allergies: Brompheniramine (Verified Allergy, Unknown, 12/30/17) Penicillins (Verified Allergy, Unknown, unknown, 12/30/17) Phenylpropanolamine (Verified Allergy, Unknown, 12/30/17) Medications Current Inpatient Medications Medications (Trade) Dose Ordered Sig/Ti Route Start Time Stop Time Status Last Admin Dose Admin Acetaminophen (Tylenol Tab) 650 mg Q4H PRN PO 12/30/17 15:15 01/29/18 15:14 Al Hydrox/Mg Hydrox/Simethicone (Maalox Max Susp) 15 ml Q4H PRN PO 12/30/17 15:15 01/29/18 15:14 12/31/17 21:26 15 ML Magnesium Hydroxide (Milk Of Magnesia Susp) 30 ml Q6H PRN PO 12/30/17 15:15 01/29/18 15:14 Polyethylene (Miralax Powder Packet) 17 gm DAILY PRN PO 12/30/17 15:15 01/29/18 15:14 Ondansetron HCl (Zofran Inj) 4 mg Q6H PRN IV 12/30/17 15:15 01/29/18 15:14 12/30/17 18:35 4 MG Heparin Sodium (Porcine) (Heparin Sq 5000 Unit/0.5ml) 5,000 unit Q12 SQ 12/30/17 21:00 01/29/18 20:59 Zolpidem Tartrate (Ambien Tab) 5 mg HSZ PRN PO 12/30/17 15:15 01/29/18 15:14 12/31/17 00:52 5 MG Hydromorphone HCl (Dilaudid Inj) 1 mg Q6H PRN IV 12/30/17 17:00 01/13/18 16:59 12/31/17 07:19 1 MG Sodium Chloride 1,000 ml @ 100 mls/hr Q10H IV 12/31/17 12:30 01/30/18 12:29 01/01/18 09:13 100 MLS/HR Clonidine HCl (Catapres Tab) 0.1 mg BID PO 12/31/17 21:00 01/30/18 20:59 01/01/18 09:14 0.1 MG Impression (1) Acute kidney injury (2) Proteinuria (3) Hypertension (4) Syncope (5) Hypokalemia 32-year-old young male with past medical history significant for hypertension and stage III CKD baseline creatinine around 1.8-2.0 possibly secondary to microvascular disease versus hypertensive nephropathy. Admitted to the hospital with headache and syncopal episode, stuffy nose and fever. Has been having poor p.o. intake at home. Has been taking ibuprofen 4 tabs every 4-5 hours. Denies any voiding symptom or hematuria. On admission he was found to have acute kidney injury, creatinine was 6.5, potassium low at 3.1. Flu swab was negative, blood culture pending CT head, chest x-ray unremarkable. Renal ultrasound without any postrenal obstruction. Urinalysis with trace proteinuria , no hematuria pyuria but had granular cast. Acute kidney injury most likely secondary to prerenal versus ATN in the setting of poor p.o. intake and heavy dose of NSAID use with underlying CKD. Ultrasound was negative for postrenal obstruction. Urinalysis is not suggestive of acute inflammatory GN. Recommendations --consider discontinuing IV fluid as p.o. intake seems to be a kidney --avoid Toradol and all NSAID --dose medications for GFR less than 30 --monitor intake and output --monitor renal function with daily renal panel --if renal function continues to improve, hopefully he can be discharged tomorrow --should have renal panel checked as an outpatient in early next week Will follow
--- NOTE | 2018-01-01 12:57 | Progress Note ---
Medicine Progress Note Date & Time of Visit: Jan 01, 2018 at 12:52. Subjective Pt was seen and examined Lying in bed with no distress Pt said that he feels fine He said that he does not have any headache Denies any chest pain, palpitation, dizziness and SOB Objective Last 8 Hrs Date Time Temp Pulse Resp B/P (MAP) Pulse Ox O2 Delivery O2 Flow Rate FiO2 01/01/18 08:39 36.5 67 18 104/67 (79) 98 Room Air 01/01/18 07:40 Room Air Physical Exam: General- no acute distress Head- atraumatic Eyes- PERRL, EOMI ENT- oropharynx clear Neck- supple, no JVD Lungs- clear to auscultation Heart- regular rhythm Abdomen- normal bowel sounds, soft Extremities- no pretibial edema, no calf tenderness Neuro- alert, oriented x 3; PERRL, EOMI; no facial palsy Skin- warm & dry Laboratory Results: Last 24 Hours Test 01/01/18 07:04 Sodium Level 139 mmol/L Potassium Level 3.7 mmol/L Chloride Level 99 mmol/L Carbon Dioxide Level 30 mmol/L Anion Gap 10.0 mmol/L Blood Urea Nitrogen 46 mg/dl Creatinine 4.27 mg/dl Est Creatinine Clear Calc Drug Dose 25.2 ml/min Estimated GFR () 19.6 Estimated GFR (Non- 16.9 BUN/Creatinine Ratio 10.8 Random Glucose 105 mg/dl Calcium Level 8.7 mg/dl Magnesium Level 2.9 mg/dl Assessment & Plan MILENA on CKD Stage 3 Possible related to dehydration from poor oral intake and in the setting of NSAID induced Baseline Creatine seems to be between 1.8 to 2 back on 08/01 Creatine on admission 6.5 Creatine 6.25--> 4.27 today Renal U/S showed echogenic renal parenchyma suggests medical renal disease and no hydronephrosis. No evidence of renal artery stenosis If creatine continues trending down, will consider to discharge tomorrow Nephrology on board Will consider to d/c IVF after this last bag Continue avoiding nephrotoxic agents HTN On clonidine 0.1 mg BID BP stable Tobacco Abuse Counseling on smoking cessation Electrolytes Imbalance Monitor electrolytes Headache CT head showed no acute abnormality Stable DVT px On heparin subq CODE STATUS FULL CODE Disposition Will discharge home tomorrow Consultants: Nephrology Current Inpatient Medications: Current Inpatient Medications Medications (Trade) Dose Ordered Sig/Ti Route Start Time Stop Time Status Last Admin Dose Admin Acetaminophen (Tylenol Tab) 650 mg Q4H PRN PO 12/30/17 15:15 01/29/18 15:14 Al Hydrox/Mg Hydrox/Simethicone (Maalox Max Susp) 15 ml Q4H PRN PO 12/30/17 15:15 01/29/18 15:14 12/31/17 21:26 15 ML Magnesium Hydroxide (Milk Of Magnesia Susp) 30 ml Q6H PRN PO 12/30/17 15:15 01/29/18 15:14 Polyethylene (Miralax Powder Packet) 17 gm DAILY PRN PO 12/30/17 15:15 01/29/18 15:14 Ondansetron HCl (Zofran Inj) 4 mg Q6H PRN IV 12/30/17 15:15 01/29/18 15:14 12/30/17 18:35 4 MG Heparin Sodium (Porcine) (Heparin Sq 5000 Unit/0.5ml) 5,000 unit Q12 SQ 12/30/17 21:00 01/29/18 20:59 Zolpidem Tartrate (Ambien Tab) 5 mg HSZ PRN PO 12/30/17 15:15 01/29/18 15:14 12/31/17 00:52 5 MG Hydromorphone HCl (Dilaudid Inj) 1 mg Q6H PRN IV 12/30/17 17:00 01/13/18 16:59 12/31/17 07:19 1 MG Sodium Chloride 1,000 ml @ 100 mls/hr Q10H IV 12/31/17 12:30 01/30/18 12:29 01/01/18 09:13 100 MLS/HR Clonidine HCl (Catapres Tab) 0.1 mg BID PO 12/31/17 21:00 01/30/18 20:59 01/01/18 09:14 0.1 MG
[2018-01-01 15:06] VITALS: BP 119/80; PULSE 69; TEMP 36.8; O2SAT 98
[2018-01-01 23:59] VITALS: BP 138/81; PULSE 58; TEMP 36.5; O2SAT 97
[2018-01-02] MEDS: SODIUM CHLORIDE 0.9% 1000ML 1,000 ML IV SCH (04:51)
[2018-01-02 07:03] VITALS: BP 142/80; PULSE 70; TEMP 36.7; O2SAT 100
[2018-01-02] MEDS: HEPARIN SOD 5000 UNIT/0.5 ML CARP SQ SCH (07:37)
[2018-01-02] MEDS: CLONIDINE HCL 0.1 MG TAB PO SCH (07:38)
[2018-01-02 08:34] LABS: CALCIUM 8.4 mg/dl (8.5-10.1); CREATININE 3.05 mg/dl (0.60-1.40); POTASSIUM 4.5 mmol/L (3.5-5.1)
--- NOTE | 2018-01-02 12:53 | Progress Note ---
Progress Note Date of Service Jan 02, 2018. Progress Note Nurse Paged to notify that patient left AMA. She said that patient already left the hospital. Unable to talk to patient to follow up with his PCP to monitor his renal function From my previous discussion, pt understood that he needs to avoid nephrotoxic agents such as NSAIDs
--- NOTE | 2018-01-04 07:35 | Discharge Summary ---
Discharge Summary Date of Service Jan 04, 2018. Discharge Summary Admission Date: Dec 30, 2017 at 15:06 Discharge Disposition: Home Principal Diagnosis: MILENA on CKD Stage 3 Secondary Diagnoses/Problems: Tobacco HTN Electrolytes imbalance Headache Consultations: Nephrology Admission Information HPI (per Admitting provider): 32 years old man with history of hypertension, on clonidine, for the past 3 days has been having severe headache nasal stuffiness and fever. Patient started taking ibuprofen 4 tablets at a time for 4-5 times a day. He is in the morning Patient then developed dizziness weakness. Presented to the ED and had a syncope in the ER. Was found to having an acute on chronic 2016 renal failure. His creatinine was ranging between 1.8-2, we do not have any creatinine measurements between 2016 and today currently active smoker Admits to drug abuse in the past No family history of renal disease Physical Exam (per Admitting): General Appearance: + mild distress Eyes: normal inspection, EOMI ENT: normal ENT inspection, pharynx normal Neck: supple Respiratory/Chest: chest non-tender, lungs clear, normal breath sounds, no respiratory distress, no accessory muscle use Cardiovascular: regular rate, rhythm, no edema, no gallop, no JVD, no murmur , normal peripheral pulses Abdomen/GI: normal bowel sounds, non tender, soft, no organomegaly, no pulsatile mass Back: normal inspection, no CVA tenderness, no muscle spasm, normal range of motion Extremities/Musculoskelatal: normal inspection, no calf tenderness, normal capillary refill, no pedal edema, normal range of motion 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 No evidence of renal artery stenosis If creatine continues trending down, will consider to discharge tomorrow Nephrology on board Will consider to d/c IVF after this last bag Continue avoiding nephrotoxic agents HTN On clonidine 0.1 mg BID BP stable Tobacco Abuse Counseling on smoking cessation Electrolytes Imbalance Monitor electrolytes Headache CT head showed no acute abnormality Stable DVT px On heparin subq CODE STATUS FULL CODE Disposition Will discharge home tomorrow Total time spent on discharge = 5 minutes This includes examination of the patient, discharge planning, medication reconciliation, and communication with other providers. Discharge Instructions Pt left AMA
== END 2018-01-02 10:48 | disposition left against medical advice (07) | DRG 684 ==
LOC: C.EDB 11:39 → C.MS2W 15:06 → ENRESERV 16:50
PROVIDERS: ADMIT Internal Medicine; ATTEND Internal Medicine
DX: N17.9 Acute kidney failure, unspecified (principal); I12.9 Hypertensive chronic kidney disease with stage 1 through stage 4 chronic kidney disease, or unspecified chronic kidney disease; E87.6 Hypokalemia; N18.3 Chronic kidney disease, stage 3 (moderate); E87.8 Other disorders of electrolyte and fluid balance, not elsewhere classified; R55 Syncope and collapse; R80.9 Proteinuria, unspecified; R51 Headache; F17.200 Nicotine dependence, unspecified, uncomplicated; Z88.0 Allergy status to penicillin; Z82.49 Family history of ischemic heart disease and other diseases of the circulatory system; Z84.1 Family history of disorders of kidney and ureter

== ENCOUNTER 2020-01-31 11:33 | Observation (INO) ==
--- OUTSIDE RECORDS SUMMARY | 2020-01-31 11:37 | External Medical Summary | Continuity of Care Document ---
:1985 Author Name Miladys Hayes Address Unavailable Unavailable , Care Team Providers Name Role Phone NonMNPG M.DAdam Unavailable [email or web address] [email or web address], UNKNOWN Unavailable Unavailable Problems Active medical history not documented Allergies and Adverse Reactions Allergy history not documented Medications Medications not documented Procedures Procedures not documented Immunizations Immunizations not documented Plan of Treatment Planned Observations Planned Goals not documented Results No Known Results Results not documented
[2020-01-31] MEDS ORDERED: HYDROmorphone INJ 1 MG/ML SYRINGE IV STA ×2 (11:42→12:22)
[2020-01-31] MEDS ORDERED: ONDANSETRON INJ 2 MG/ML 2 ML VIAL IV STA (11:44)
[2020-01-31] MEDS: SODIUM CHLORIDE 0.9% 1000ML 1,000 ML IV SCH ×3 (11:50→20:38)
[2020-01-31 12:08] LABS: Basophils # (auto) 0.02 K/uL (0-0.2); Basophils % (auto) 0.2 %; Eosinophils # (auto) 0.27 K/uL (0-0.5); Hemoglobin 17.3 g/dL (14.0-18.0); Immature Granulocytes # (auto) 0.02 K/uL (0.00-0.02); Immature Granulocytes % (auto) 0.2 %; Lymphocytes # (auto) 3.61 K/uL (1.2-3.4); Lymphocytes % (auto) 39.8 %; Mean Corpuscular Hemoglobin 31.1 pg (25-34); Mean Corpuscular Hgb Conc 35.3 g/dL (32-36); Mean Platelet Volume 10.3 fL (7.4-10.4); Monocytes # (auto) 0.63 K/uL (0.11-0.59); Neutrophils # (auto) 4.51 K/uL (1.4-6.5); Neutrophils % (auto) 49.8 %; Platelet Count 233 K/uL (130-400); RDW Coefficient of Variation 12.9 % (11.5-14.5); RDW Standard Deviation 41.5 fL (36.4-46.3); Red Blood Count 5.57 M/uL (4.7-6.1); White Blood Count 9.06 K/uL (4.8-10.8)
--- NOTE | 2020-01-31 12:10 | Emergency Department Note ---
ED Provider Note NAME: LOUIS CURRY II AGE: 35 SEX: M : 1985 ARRIVES VIA: Ambulance INFORMANT: Patient, ED PROVIDER(S): Barry De La Rosa DO CHIEF COMPLAINT: Left knee pain HPI: Patient is a 35-year-old male who was working with a truck tire when it exploded. He is complaining of severe pain on his left knee. Pain is a 12 out of 10. He notes he was able to walk on it but was have significant discomfort. He was brought in by EMS. Patient denies any loss consciousness. He denies any head or neck pain. He has no headache or chest pain or shortness of breath. No trouble breathing. No belly pain. No tingling or numbness in his legs. No other exacerbating or remitting factors. They were unable to get an IV in the ambulance consequently he got no pain medications. ROS: See above HPI for pertinent positives & negatives. A total of 10 systems reviewed and were otherwise negative. PAST MEDICAL HISTORY:Back pain PAST SURGICAL HISTORY:None FAMILY HISTORY:None SOCIAL HISTORY:Previous drug abuse HOME MEDICATIONS:See Below ALLERGIES:Denies any allergies VITALS:See Below PHYSICAL EXAMINATION: GENERAL: Sitting up in bed, moderate distress holding left lower extremity. EYE EXAM: normal conjunctiva. PERRL and EOM's grossly intact. NOSE: Small amount of dried blood along the left septum. No septal hematoma. OROPHARYNX: no exudate, no erythema, lips, buccal mucosa, and tongue normal and mucous membranes are moist NECK: supple, no nuchal rigidity, no adenopathy, non-tender CHEST: Stable to compression anteriorly and posteriorly LUNGS: Clear to auscultation. Normal chest wall mechanics HEART: no murmurs, S1 normal and S2 normal ABDOMEN: abdomen soft, non-tender, normo-active bowel sounds, no masses, no rebound or guarding. PELVIS: Stable to compression anteriorly and posteriorly BACK: Back is symmetrical on inspection and there is no deformity, no midline tenderness, no CVA tenderness. UPPER EXTREMITIES: upper extremities are grossly normal. LOWER EXTREMITIES: No pitting edema. 8cm laceration over left knee with the patella/distal femur and proximal tibia exposed. DP and PT 2 out of 4. No pain with range of motion of the ankle. NEURO EXAM: Normal sensorium, cranial nerves II-XII grossly intact, normal speech, no gross weakness of arms. MEDICAL DECISION MAKING: Patient is a 35-year-old male who had a tire exploded on him and create a laceration of the left knee. On exam he has an 8 cm laceration which was secondary to high-pressure injury. Consulted orthopedics prior to blood work and just after x-rays. Labs show no significant leukocytosis or anemia. BMP with a creatinine of 2 significant improved from his previous. LFTs bilirubin was unremarkable. UA was negative. Orthopedics recommended a CT which shows a distal fracture of the medial femoral condyle and involvement of the joint as there is air present. Orthopedics/Ari was present at bedside. Requested Clinda patient was given 600 mg clindamycin IV secondary to the penicillin allergy. He was are given 2 dose of IV Dilaudid. He was updated at bedside. He will be admitted and likely taken to the OR for washout. Triage Nursing notes reviewed. Prior medical records reviewed Vital Signs: reviewed and remarkable for no significant abnormalities Differential diagnosis: Differential diagnoses include major intracranial, cervical, spinal, thoracic, abdominal, pelvic and neurologic injury. Fracture, contusion, sprain, strain, laceration, abrasions included as well. ER treatment provided: See below Diagnostics interpreted by me: ECG: none Cardiac Monitoring: sinus rythm rate of 69 Laboratory studies: Please see above and below. Imaging studies: X-ray of the left knee shows no acute fracture or dislocation. CT of the left knee shows left medial distal femoral condyle fracture with air tracking into the joint Consultation(s): Dr. Yuan and Ari García ED COURSE: Procedures: none Critical Care: None Impression & Plan Open fracture, Knee fracture, Laceration Past Med/Surg History Social History Feels Safe at Home: Yes Smoking Status: Current every day smoker Results & Data Vital Signs Vital Signs - 24 hr 01/31/20 11:45 Temperature 36.7 C Temperature Source Oral Pulse Rate 69 Pulse Rhythm Regular Pulse Strength Normal Respiratory Rate 18 Respiratory Effort / Characteristics Non-Labored Spontaneous Respiratory Depth Normal Blood Pressure 175/96 H Blood Pressure Mean 122 Blood Pressure Position Lying Pulse Oximetry 100 Oxygen Delivery Method Room Air Sepsis Recent Fever Within 48 Hours No Sepsis Action Taken by Nursing No Action Required Laboratory Data Result diagrams: 01/31/20 11:50 01/31/20 11:50 Lab Results 01/31/20 01/31/20 01/31/20 Range/Units 11:50 11:50 12:57 WBC 9.06 (4.8-10.8) K/uL RBC 5.57 (4.7-6.1) M/uL Hgb 17.3 (14.0-18.0) g/dL Hct 49.0 (42-52) % MCV 88.0 (80-100) fL MCH 31.1 (25-34) pg MCHC 35.3 (32-36) g/dL RDW Std Deviation 41.5 (36.4-46.3) fL RDW Coeff of Geovanna 12.9 (11.5-14.5) % Plt Count 233 (130-400) K/uL MPV 10.3 (7.4-10.4) fL Immature Gran % (Auto) 0.2 % Neut % (Auto) 49.8 % Lymph % (Auto) 39.8 % [place] % (Auto) 7.0 % Eos % (Auto) 3.0 % Baso % (Auto) 0.2 % Immature Gran # (Auto) 0.02 (0.00-0.02) K/uL Neut # (Auto) 4.51 (1.4-6.5) K/uL Lymph # (Auto) 3.61 H (1.2-3.4) K/uL [place] # (Auto) 0.63 H (0.11-0.59) K/uL Eos # (Auto) 0.27 (0-0.5) K/uL Baso # (Auto) 0.02 (0-0.2) K/uL Sodium 140 (136-145) mmol/L Potassium 3.8 (3.5-5.1) mmol/L Chloride 106 (98-107) mmol/L Carbon Dioxide 30 (21-32) mmol/L Anion Gap 4.0 (3-11) BUN 21 H (7-18) mg/dl Creatinine 2.09 H (0.6-1.4) mg/dl Est Cr Clr Drug Dosing 57.0 ml/min Est GFR ( Amer) 45.5 Est GFR (Non-Af Amer) 39.3 BUN/Creatinine Ratio 9.8 L (10-20) Glucose 120 H (70-99) mg/dl Calcium 8.9 (8.5-10.1) mg/dl Total Bilirubin 0.4 (0.2-1) mg/dl AST 35 (15-37) U/L ALT 53 (12-78) U/L Alkaline Phosphatase 160 H (45-117) U/L Total Protein 8.4 H (6.4-8.2) gm/dl Albumin 4.2 (3.4-5.0) gm/dl Globulin 4.2 H (2.5-4.0) gm/dl Albumin/Globulin Ratio 1.0 (0.9-2) Lipase 181 (73-393) U/L Urine Color Yellow Urine Appearance Clear (Clear) Urine pH 7.0 (4.5-7.5) Ur Specific [place] 1.012 (1.000-1.030) Urine Protein 2+ H (Negative) Urine Glucose (UA) Negative (Negative) Urine Ketones Negative (Negative) Urine Blood Negative (Negative) Urine Nitrite Negative (Negative) Urine Bilirubin Negative (Negative) Urine Urobilinogen Negative (Negative) Ur Leukocyte Esterase Negative (Negative) Urine WBC (Auto) 1-5 (0-5) /hpf Urine RBC (Auto) 0-4 (0-4) /hpf U Hyaline Cast (Auto) 0 (0-5) /lpf U Epithel Cells (Auto) 0-5 (0-5) /lpf Urine Bacteria (Auto) Negative (Negative) Administered Medications Discontinued Medications Hydromorphone HCl (Dilaudid) 1 mg IV NOW STA Stop: 01/31/20 11:43 Last Admin: 01/31/20 11:50 Dose: 1 mg Documented by: [id number] Hydromorphone HCl (Dilaudid) 1 mg IV NOW STA Stop: 01/31/20 12:23 Last Admin: 01/31/20 12:28 Dose: 1 mg Documented by: [id number] Sodium Chloride (Nss 1000ml) 1,000 mls @ 999 mls/hr IV .Q1H1M VANDANA Stop: 01/31/20 13:45 Last Infusion: 01/31/20 12:54 Dose: 0 mls/hr Documented by: [id number] Admin: 01/31/20 11:50 Dose: 999 mls/hr Documented by: [id number] Ondansetron HCl (Zofran) 4 mg IV NOW STA Stop: 01/31/20 11:45 Last Admin: 01/31/20 11:50 Dose: 4 mg Documented by: [id number] Discharge Plan Visit Data Chief Complaint: Knee Injury/Pain ED Provider: Barry De La Rosa Discharge Problem: Open fracture, Knee fracture, Laceration Forms Stand Alone Forms: My [facility] Prescriptions Prescriptions: No Action buprenorphine-naloxone 8-2 mg Tablet, Sublingual 1 tab SUBLINGUAL DAILY RF: 0
[2020-01-31 12:23] LABS: Albumin Level 4.2 gm/dl (3.4-5.0); BUN Creatinine Ratio 9.8 (10-20); Calcium 8.9 mg/dl (8.5-10.1); Est GFR (African American) 45.5; Est GFR (Non-African American) 39.3; Potassium 3.8 mmol/L (3.5-5.1)
[2020-01-31 12:26] LABS: Bilirubin,Total 0.4 mg/dl (0.2-1); Globulin 4.2 gm/dl (2.5-4.0); Total Protein 8.4 gm/dl (6.4-8.2)
--- NOTE | 2020-01-31 12:34 | XRay Report ---
XR knee LT 1 or 2V routine CLINICAL HISTORY: l knee pain pain COMPARISON: None. DISCUSSION: The bones and joint spaces appear intact. There is no evidence of fracture, dislocation o r bony disease. Very small joint effusion IMPRESSION: Very small joint effusion. Otherwise negative study. ACT 112: Negative or not required by law. The above report was generated using voice recognition software. It may contain grammatical, syntax or spelling errors. Electronically signed by: Jermaine Haas M.D. 01/31/2020 12:32 PM
--- NOTE | 2020-01-31 12:36 | XRay Report ---
XR femur LT 2V routine CLINICAL HISTORY: High-pressure injury to left knee. Left leg pain. COMPARISON STUDY: None. FINDINGS: No fracture or dislocation within the left femur. The visualized pelvic bones are intact. P repatellar soft tissue laceration. Trace gas within the suprapatellar space. This is likely due to th e laceration. There is a small knee effusion. IMPRESSION: 1. No fracture or dislocation within the left femur. 2. Prepatellar soft tissue laceration. There is also trace gas within the suprapatellar space likely due to the laceration. 3. Small left knee effusion. ACT 112: Negative or not required by law. Electronically signed by: Musa Bustillo M.D. 01/31/2020 12:35 PM
[2020-01-31 13:09] LABS: Appearance Urine Clear (Clear); Bacteria Urine Automated Negative (Negative); Bilirubin Urine Negative (Negative); Blood Urine Negative (Negative); Cast Urine Automated 0 /lpf (0-5); Color Urine Yellow; Epithelial Cell Urine Auto 0-5 /lpf (0-5); Glucose Urine UA Negative (Negative); Ketones Urine Negative (Negative); Leukocyte Esterase Urine Negative (Negative); Nitrite Urine Negative (Negative); Protein Urine 2+ (Negative); RBC Urine Automated 0-4 /hpf (0-4); Specific Gravity Urine 1.012 (1.000-1.030); Urobilinogen Urine Negative (Negative)
--- NOTE | 2020-01-31 13:48 | CT Scan Report ---
CT SCAN OF THE LEFT KNEE WITHOUT IV CONTRAST CLINICAL HISTORY: Left knee injury. COMPARISON STUDY: Radiographs of the left knee dated 01/31/2020. TECHNIQUE: CT scan of the left knee is performed from the distal femur to the proximal tibia and fibu la. Images are reviewed in the axial, sagittal, and coronal planes. IV contrast was not administered for this examination. A dose lowering technique was utilized adhering to the principles of ALARA. 3-D reformats are created and assessed. CT DOSE: 201.78 mGy.cm FINDINGS: The skeletal structures are well mineralized. There is a subtle nondisplaced fracture involving the p eripheral cortex of the medial femoral condyle, best seen on axial image #183. There are tiny distrac farhat fragments. This extends peripherally to the articular surface of the medial compartment. No addit ional fracture is identified. The patella, the proximal tibia, and the proximal fibula are maintained . The joint spaces are preserved. A small bone island is incidentally noted in the lateral femoral co ndyle. There is trace lipohemarthrosis, with gas present in the joint space. Soft tissue injury and e josephine is present along the medial aspect of the knee. There is tilt of the patella, suggesting injury to the medial patellar retinaculum. Additional foci of superficial and deep soft tissue gas around th e knee are consistent with laceration/penetrating wound. The regional musculature is normal in appear ance. No large intramuscular hematoma is identified. Inflammatory stranding is present around the vas tus medialis. IMPRESSION: 1. There is a subtle nondisplaced fracture involving the medial femoral condyle. This extends to the peripheral aspect of the articular surface in the medial compartment. 2. No additional fracture is identified. 3. Soft tissue injury/edema is present along the medial aspect of the knee with evidence of penetrati ng wound. 4. There is trace lipohemarthrosis as well as gas within the joint space. 5. Patellar tilt suggests disruption of the medial patellar retinaculum. ACT 112: Negative or not required by law. Dictated: 01/31/2020 1:05 PM Transcribed: 01/31/2020 1:39 PM [place] [id number] [facility] Electronically signed by: Donaldo Bateman M.D. 01/31/2020 1:46 PM
[2020-01-31] MEDS ORDERED: CLINDAMYCIN 600 MG/54 ML BAG IV ONE (13:56)
[2020-01-31] MEDS ORDERED: BACITRACIN INJ 50,000 UNIT VIAL ONE ×2 (15:37→15:56)
[2020-01-31] MEDS ORDERED: PROPOFOL IV EMULSION 10 MG/ML 20 ML VIAL IV ONE (16:16)
[2020-01-31] MEDS ORDERED: MIDAZOLAM HCL 1 MG/ML 2ML VIAL ONE (16:16)
[2020-01-31] MEDS ORDERED: LIDOCAINE HCL 2% 2 ML VIAL/AMP(20MG/ML) INFIL ONE (16:16)
[2020-01-31] MEDS ORDERED: ONDANSETRON INJ 2 MG/ML 2 ML VIAL ONE (16:16)
[2020-01-31] MEDS ORDERED: fentaNYL citrate 100 MCG/2 ML VIAL ONE ×3 (16:16→19:07)
[2020-01-31] MEDS ORDERED: CEFAZOLIN 2,000 MG/15 ML IV PUSH IV ONE (16:29)
[2020-01-31] MEDS ORDERED: HYDROmorphone INJ 1 MG/ML SYRINGE IV PRN (16:34)
[2020-01-31] MEDS ORDERED: ATROPINE SULFATE 0.1 MG/ML 10ML SYR IV PRN (16:34)
[2020-01-31] MEDS ORDERED: ePHEDrine sulfate 50 MG/ML AMP IV PRN (16:34)
[2020-01-31] MEDS ORDERED: ONDANSETRON INJ 2 MG/ML 2 ML VIAL IV PRN ×2 (16:34→18:38)
--- NOTE | 2020-01-31 16:34 | Anesthesiology Consultation ---
Date of Service January 31, 2020 Assessment & Plan (1) Encounter for pre-operative examination: Chart Review Chart Review: Acceptable Risk for Surgery Consults Requested none ASA ASA3 Proposed Anesthesia Anesthesia Type: General Risk / Benefits Reviewed With: PT / POA / Parent / Guardian, Accepts Plan and Informed Consent Obtained History Surgery Operation Date: 01/31/20 09:40 Proposed Procedures p Left Knee Wound Incision and Drainage - Andrew Yuan M.D. Height/Weight Height: 5 ft 10 in Weight: 98.8 kg Allergies Allergy/AdvReac Type Severity Reaction Status Date / Time brompheniramine Allergy Unknown Verified 01/31/20 12:44 Penicillins Allergy Unknown unknown Verified 01/31/20 12:44 phenylpropanolamine Allergy Unknown Verified 01/31/20 12:44 Medications Home Medications Medication Instructions Recorded Confirmed Last Taken buprenorphine-naloxone 1 tab SUBLINGUAL DAILY 01/31/20 01/31/20 01/31/20 NPO Date Last Intake of Fluids: 01/31/20 Time Last Intake of Fluids: 09:00 Date Last Intake of Solids: 01/31/20 Time Last Intake of Solids: 07:00 Past Medical History Medical History Chronic kidney disease Hypertension Obesity Smoker Exercise / Class Metabolic Activity II 4-5 Yardwork/Stairs/Walk up hill Past Anesthesia History No Hx of Anesthesia Complications and No Family Hx of Anesthesia Complications History of PONV No Hx of PONV and No Hx of Motion Sickness Social History Smoking Status: Current every day smoker Physical Exam Vital Signs Last Vital Signs Temp 99.1 F 01/31/20 16:24 Pulse 97 H 01/31/20 16:24 Resp 16 01/31/20 16:24 BP 175/125 H 01/31/20 16:24 Pulse Ox 99 01/31/20 16:24 ENMT Mouth: no dentition abnormality Thyromental Distance: > or= 3.5 Finger Breadths Mallampati Class: II Neck normal visual inspection Respiratory normal respiratory effort Auscultation: lungs clear to auscultation bilaterally Cardiovascular Rate/Rhythm: regular rate and regular rhythm Testing Laboratory Results 01/31/20 11:50 01/31/20 11:50 Urine Color Yellow 01/31/20 12:57 Urine Appearance Clear (Clear) 01/31/20 12:57 Urine pH 7.0 (4.5-7.5) 01/31/20 12:57 Ur Specific [place] 1.012 (1.000-1.030) 01/31/20 12:57 Urine Protein 2+ (Negative) H 01/31/20 12:57 Urine Glucose (UA) Negative (Negative) 01/31/20 12:57 Urine Ketones Negative (Negative) 01/31/20 12:57 Urine Nitrite Negative (Negative) 01/31/20 12:57 Ur Leukocyte Esterase Negative (Negative) 01/31/20 12:57 Urine WBC (Auto) 1-5 /hpf (0-5) 01/31/20 12:57 Urine RBC (Auto) 0-4 /hpf (0-4) 01/31/20 12:57 U Hyaline Cast (Auto) 0 /lpf (0-5) 01/31/20 12:57 U Epithel Cells (Auto) 0-5 /lpf (0-5) 01/31/20 12:57 Urine Bacteria (Auto) Negative (Negative) 01/31/20 12:57
[2020-01-31] MEDS ORDERED: CEFAZOLIN 2000MG 2,000 MG/15 ML SYR IV ONE (16:42)
--- NOTE | 2020-01-31 16:42 | History & Physical Report ---
Date of Service January 31, 2020 Assessment & Plan (1) Laceration of knee, left: He has a traumatic laceration over the medial aspect of his left knee with an open knee joint. He also has a small nondisplaced fracture in the nonarticular portion of the medial femoral condyle, near the medial collateral ligament insertion. I would recommend an irrigation and debridement surgery of his knee to washout the knee joint and prevent septic arthritis. He will also need a hinged knee brace or knee immobilizer to pull protect the medial collateral ligament. Risks, benefits, and alternatives of surgery were explained in detail. The surgical procedure, as well as postoperative recovery and rehabilitation, was also explained in detail. Risks include bleeding; infection; damage to surrounding structures such as nerves, blood vessels, and tendons that run in the area; persistent pain, weakness, or stiffness; or need for further surgery. He understands all of this and wishes to proceed with surgery. Informed consent was obtained. Encounter type: initial encounter Qualified Code(s): S81.012A - Laceration without foreign body, left knee, initial encounter History of Present Illness Chief Complaint: Left knee injury Primary Care Provider: NO PCP Mr. Escalera is a 35-year-old male who was inflating a tire this afternoon when the tire over pressurized and blew off of the rim. The rim impacted the medial aspect of his left knee. He had a deep laceration there. He presented to the emergency room for further evaluation and care. The emergency department staff consulted orthopedics for further management. Allergies Allergy/AdvReac Type Severity Reaction Status Date / Time brompheniramine Allergy Unknown Verified 01/31/20 12:44 Penicillins Allergy Unknown unknown Verified 01/31/20 12:44 phenylpropanolamine Allergy Unknown Verified 01/31/20 12:44 Home Medications Home Medications Medication Instructions Recorded Confirmed Type buprenorphine-naloxone 1 tab SUBLINGUAL DAILY 01/31/20 01/31/20 History Past Med/Surg History Medical History Chronic kidney disease Hypertension Obesity Smoker Social History Feels Safe at Home: Yes Smoking Status: Current every day smoker Physical Exam Physical Exam: General: The patient appears well developed and well nourished. Awake, alert, and oriented x 3. Appropriate mood and affect. Gait was not assessed due to his knee injury. Normal coordination and balance. Skin: The skin over the medial aspect of the left knee shows a deep laceration approximately 8 cm in length. Inspection/Palpation: Visual inspection reveals no gross deformity of the knee. There is moderate swelling and tenderness to palpation surrounding the laceration. Compartments are all soft and compressible. Range of Motion: There is limited range of motion of the knee due to pain Stability: Ligamentous stability of the knee was not tested due to the location of the known fracture. Strength: Knee strength is limited due to pain. Intact ankle and toe dorsiflexion and plantarflexion. Sensation: The patient reports no numbness in the foot or lower leg. Vascular: Hand is warm and well perfused. No diffuse edema. Results & Data Vital Signs (Past 12 Hours) Vital Signs Temp Pulse Pulse Resp BP BP Pulse Ox 01/31/20 16:24 37.3 C 97 H 16 175/125 H 99 01/31/20 15:36 74 18 166/104 H 96 01/31/20 13:28 72 18 176/102 H 98 01/31/20 11:45 36.7 C 69 18 175/96 H 100 Diagnostic Findings Left knee x-rays were reviewed. They are unremarkable. No obvious fractures. CT scan of the left knee was also reviewed. It does show obvious gas within the knee joint, consistent with an open joint. There is a small, nondisplaced fracture in the nonarticular portion of the medial femoral condyle, near the footprint of the medial collateral ligament.
[2020-01-31] MEDS ORDERED: DEXAMETHASONE SOD INJ 4 MG/ML VIAL ONE (17:10)
[2020-01-31] MEDS ORDERED: LABETALOL HCL IV 5 MG/ML 20ML IV ONE (17:18)
[2020-01-31] MEDS ORDERED: BUPIVACAINE 0.5 % 5 MG/1 ML MPF 30ML VIAL ONE (18:13)
[2020-01-31] MEDS ORDERED: LIDOCAINE HCL 1% 20 ML VIAL ONE (18:13)
--- NOTE | 2020-01-31 18:31 | Post Operative Brief Note ---
Immediate Post Op Note v1 Date of Surgery January 31, 2020 Pre & Post Diagnosis Operation Date: 01/31/20 09:40 Pre-Op Diagnosis: Laceration of Left Knee Post-Op Diagnosis: Laceration of Left Knee with Disruption of Vastus Medialis; Open Osteochondral Fracture of Medial Femoral Condyle I identified the patient and participated in the time-out.: Yes Procedure Operation Date: 01/31/20 09:40 Actual Procedures p Irrigation and Debridement of Open Fracture Left Knee; Repair of Vastus Medialis(Left) - Andrew Yuan M.D. Surgeon Andrew Yuan Cab Starter None Estimated Blood Loss 25 Findings Consistent with Post-Op Diagnosis Drains Hemovac Drain (1/" round drain, left lateral knee)
[2020-01-31] MEDS ORDERED: METOCLOPRAMIDE HCL INJ 5 MG/ML 2 ML VIAL IV PRN (18:38)
[2020-01-31] MEDS ORDERED: NALOXONE HCL 0.4 MG/1 ML VIAL/CARP IV PRN (18:38)
[2020-01-31] MEDS ORDERED: bisacodyL 10 MG SUPP PR PRN (18:38)
[2020-01-31] MEDS ORDERED: MAGNESIUM HYDROXIDE SUSP 30 ML UDC PO PRN (18:38)
--- NOTE | 2020-01-31 19:02 | Operative Report ---
Post Operative Report Pre & Post Diagnosis Operation Date: 01/31/20 09:40 Pre-Op Diagnosis: Laceration of Left Knee with open knee joint Post-Op Diagnosis: Laceration of Left Knee with open knee joint, Disruption of Vastus Medialis, and Open Osteochondral Fracture of Medial Femoral Condyle I identified the patient and participated in the time-out.: Yes Procedure Operation Date: 01/31/20 09:40 Actual Procedures Irrigation and Debridement of Left Knee Open Osteochondral Fracture of medial femoral condyle; skin, subcutaneous tissue, muscle, fascia, and bone (38969) Repair of Left Vastus Medialis portion of quadriceps tendon (45094) - Andrew Yuan M.D. Surgeon Andrew Yuan Outpatient Program Coordinator None Estimated Blood Loss 25 Findings Consistent with Post-Op Diagnosis Specimens None Drains Medium Hemovac Anesthesia Type General Complications none Disposition Disposition: Recovery Room Indications Mr. Escalera is a 35-year-old male who injured his left knee when a tire exploded and he sustained a significant laceration all across the medial aspect of the left knee. History, clinical exam, and imaging were consistent with the above diagnosis. Risks, benefits, and alternatives of surgery were explained in detail. The patient understood all this and wished to proceed. Description of Procedure Patient was identified in the preoperative holding area. Operative extremity was marked. Patient was then brought back to the operating room, and general anesthesia was induced without complication. Appropriate weight-based dose of Ancef was infused intravenously for antibiotic prophylaxis. Tourniquet was placed on the left upper thigh. Leg was then prepped and draped in a standard sterile fashion using Chlorhexidine prep. The leg was then exsanguinated with an Esmarch, and the tourniquet was inflated. The wound was inspected. This was a mostly transverse and slightly oblique laceration across the anterior medial aspect of the left knee measuring approximately 8 cm in length. It was quite deep. This was extended slightly proximally and distally as necessary for proper visualization throughout the procedure. As I elevated full-thickness skin flaps, it was immediately evident that there was a near complete disruption of the vastus medialis portion of the quadriceps mechanism off of the superior medial aspect of the patella. The disruption appeared to basically be at the tendinous portion of the vastus medialis insertion into the patella, and did appear amenable to repair. The disruption of the vastus medialis measured approximately 6 cm in length. Deep to this vastus medialis disruption, there was an obvious traumatic arthrotomy of the knee joint capsule, but this only measured about 1 cm in length. This traumatic arthrotomy was extended slightly proximally and distally for proper access to the knee joint. There was hematoma debris within the knee joint, but no obvious foreign debris within the joint. There was some mild contamination with dirt in the skin, subcutaneous tissues, and into the muscle and fascial layers, but no obvious dirt or debris within the knee joint itself. However, I did find some free osteochondral fragments within the joint. I then searched for the donor site, and was able to locate this by flexing the knee. The donor site appeared to be an approximately 15 x 15 mm area on the most medial aspect of the weightbearing portion of the medial femoral condyle. In this area there was a severely comminuted, impacted area of significant fragmentation of the cartilage and underlying subchondral bone, consistent with an open, impacted, osteochondral fracture of the medial femoral condyle. Multiple small fragments of loose cartilage and bone were debrided from this osteochondral defect. After complete exposure of the wound and knee joint, I then proceeded with aggressive sharp debridement of the skin, subcutaneous tissue, deep fascia, muscle, and bone. This was carried out with knife, scissors, curette, and rongeur. Again, most of the foreign dirt and debris was in the subcutaneous tissue and into the fascial and muscle layer. After thorough aggressive sharp debridement was performed, I then copiously irrigated the knee joint and traumatic wound with 9 L of sterile saline via gravity irrigation. After thorough debridement and irrigation was complete, I then placed a Hemovac drain within the knee joint. I then repaired the vastus medialis portion of the quadriceps mechanism with #1 Vicryl suture. I then closed subcutaneous tissue with 3-0 Vicryl suture, and closed skin with 3-0 Prolene. I then anesthetized the wound bed with a 50/50 mixture of 1% lidocaine and 0.5% Marcaine without epinephrine. Sterile dressings were then applied with Xeroform, sterile gauze, sterile Webril, and Frederick wrap. Hinged knee brace was then applied, with the range of motion set at 0 to 40 degrees. The drapes were removed, the patient was awakened from anesthesia, and taken to the Post Anesthesia Care Unit in stable condition. There were no immediate complications from the procedure. I was present and scrubbed for the entire procedure. I attest to the content of the Intraoperative Record and any orders documented therein. Any exceptions are noted below.
[2020-01-31] MEDS: fentaNYL citrate 100 MCG/2 ML VIAL IV PRN ×3 (19:10→19:25)
[2020-01-31] MEDS ORDERED: HydrALAZINE HCL 20 MG/ML VIAL ONE (19:31)
[2020-01-31] MEDS: HydrALAZINE HCL 20 MG/ML VIAL IV STA ×2 (19:37→19:45)
[2020-01-31] MEDS ORDERED: HydrALAZINE HCL 20 MG/ML VIAL IM STA (19:44)
--- NOTE | 2020-01-31 19:50 | Anesthesiology Progress Note ---
Date of Service January 31, 2020 Anesthesia Post Procedure Vital Signs Vital Signs: Temp Pulse Pulse Pulse Resp BP BP 01/31/20 19:35 77 14 153/100 H 01/31/20 19:25 78 12 160/115 H 01/31/20 19:15 73 12 154/122 H 01/31/20 19:05 85 12 142/105 H 01/31/20 18:55 76 24 139/79 01/31/20 18:45 80 20 155/83 H 01/31/20 18:35 98.6 F 86 21 111/73 01/31/20 16:24 99.1 F 97 H 16 175/125 H 01/31/20 15:36 74 18 166/104 H 01/31/20 13:28 72 18 176/102 H 01/31/20 11:45 98.1 F 69 18 175/96 H Pulse Ox 01/31/20 19:35 100 01/31/20 19:25 100 01/31/20 19:15 100 01/31/20 19:05 100 01/31/20 18:55 100 01/31/20 18:45 100 01/31/20 18:35 100 01/31/20 16:24 99 01/31/20 15:36 96 01/31/20 13:28 98 01/31/20 11:45 100 Pain Intensity Left Knee: Pain Intensity: 5 Transfer of Care Handoff Completed per policy Notes Mental Status: alert / awake / arousable and participated in evaluation Patient Amnestic to Procedure: Yes Nausea / Vomiting: adequately controlled Pain: adequately controlled Airway Patency, RR, SpO2: stable & adequate BP & HR: stable & adequate Hydration State: stable & adequate Anesthetic Complications: no major complications apparent and Pt Satisfied with anesthetic care
[2020-01-31] MEDS: ACETAMINOPHEN 500 MG TAB PO SCH (20:32)
[2020-01-31] MEDS: OXYCODONE HCL IR 5 MG TAB (IMMEDIATE RELEASE) PO PRN (20:32)
[2020-01-31] MEDS ORDERED: IBUPROFEN 600 MG TAB PO ONE (21:30)
[2020-01-31] MEDS: DOCUSATE SODIUM 100 MG CAP PO SCH (22:02)
[2020-01-31] MEDS: IBUPROFEN 600 MG TAB PO SCH (22:20)
[2020-02-01] MEDS: ACETAMINOPHEN 500 MG TAB PO SCH ×3 (00:02→11:36)
[2020-02-01] MEDS: CEFAZOLIN 2000MG 2,000 MG/15 ML SYR IV SCH ×3 (00:02→16:07)
[2020-02-01] MEDS: MoRPHine SULFATE 4 MG/ML 1 ML CARP\\VIAL IV PRN ×3 (00:13→15:33)
[2020-02-01] MEDS: OXYCODONE HCL IR 5 MG TAB (IMMEDIATE RELEASE) PO PRN ×3 (01:11→14:33)
[2020-02-01] MEDS: IBUPROFEN 600 MG TAB PO SCH ×3 (03:03→14:33)
[2020-02-01] MEDS: SODIUM CHLORIDE 0.9% 1000ML 1,000 ML IV SCH (06:41)
[2020-02-01] MEDS: DOCUSATE SODIUM 100 MG CAP PO SCH (08:29)
[2020-02-01] MEDS ORDERED: MULTIVITAMIN TAB PO SCH (09:00)
--- NOTE | 2020-02-01 09:27 | Orthopedic Progress Note ---
Date of Service February 01, 2020 Assessment & Plan (1) Open fracture: Postop day 1 irrigation and Debridement of Left Knee Open Osteochondral Fracture of medial femoral condyle; skin, subcutaneous tissue, muscle, fascia, and bone (60730) Repair of Left Vastus Medialis portion of quadriceps tendon Plan for discharge to home later today. We will fit him with crutches. Continue partial weightbearing left lower extremity with hinged knee brace. Plan for Hemovac removal today. Dr Yuan planning for 3 total doses of antibiotics prior to discharge tonight. Admission and Anticipated Discharge Date Admission Date: January 31, 2020 Subjective Patient ambulating in room from the bathroom back to his bed. No complaints this morning. Pain is controlled. Physical Exam Physical Exam: Dressings are clean, dry, and intact. Calves are soft nontender. Neurovascular is intact. Toes are mobile. Hemovac drainage was 50 mL's in the previous shift. Hinged knee brace intact. Results & Data ([facility]) Vital Signs (Past 12 Hours) Vital Signs Temp Pulse Resp BP Pulse Ox 02/01/20 07:49 36.5 C 58 L 16 151/89 H 99 02/01/20 03:56 36.8 C 67 18 142/74 H 99 01/31/20 23:13 36.8 C 85 18 143/81 H 98
--- NOTE | 2020-02-01 13:01 | Anesthesiology Progress Note ---
Date of Service February 01, 2020 Anesthesia Post Procedure Vital Signs Vital Signs: Temp Pulse Pulse Pulse Resp BP Pulse Ox 02/01/20 11:19 36.7 C 57 L 16 149/85 H 99 02/01/20 07:49 36.5 C 58 L 16 151/89 H 99 02/01/20 03:56 36.8 C 67 18 142/74 H 99 01/31/20 23:13 36.8 C 85 18 143/81 H 98 01/31/20 21:15 36.9 C 97 H 20 156/95 H 98 01/31/20 20:37 36.5 C 18 165/107 H 98 01/31/20 20:05 37 C 81 81 18 158/98 H 98 01/31/20 19:55 79 12 155/98 H 99 01/31/20 19:45 36.6 C 76 12 166/98 H 98 01/31/20 19:35 77 14 153/100 H 100 01/31/20 19:25 78 12 160/115 H 100 01/31/20 19:15 73 12 154/122 H 100 01/31/20 19:05 85 12 142/105 H 100 01/31/20 18:55 76 24 139/79 100 01/31/20 18:45 80 20 155/83 H 100 01/31/20 18:35 37.0 C 86 21 111/73 100 01/31/20 16:24 37.3 C 97 H 16 175/125 H 99 01/31/20 15:36 74 18 166/104 H 96 01/31/20 13:28 72 18 176/102 H 98 Pain Intensity Left Knee: Pain Intensity: 5 Left Leg: Pain Intensity: 10 Notes Mental Status: alert / awake / arousable and participated in evaluation Patient Amnestic to Procedure: Yes Nausea / Vomiting: see Notes below Pain: adequately controlled Airway Patency, RR, SpO2: stable & adequate BP & HR: stable & adequate Hydration State: stable & adequate Anesthetic Complications: no major complications apparent and Pt Satisfied with anesthetic care
--- NOTE | 2020-02-06 12:42 | Discharge Summary (DS) ---
DISCHARGE DIAGNOSIS: Laceration of the left knee with open knee joint disruption of the vastus medialis and open osteochondral fracture medial femoral condyle. SECONDARY DIAGNOSIS: Hypertension. CONSULTATIONS: None. COMPLICATIONS: None. PROCEDURES: Irrigation and debridement of left open osteochondral fracture of the medial femoral condyle, skin and subcutaneous tissue, muscle, fascia and bone with repair of left vastus medialis portion of the quadriceps tendon by Dr. Yuan on 01/31/2020. BRIEF HISTORY: As dictated in history and physical. HOSPITAL SUMMARY: The patient was admitted on the above-noted date and underwent the above-noted procedure performed, which he tolerated well. On his first postoperative day, he was up ambulating in the room to the bathroom back to his bed. He had no complaints that morning. Pain was controlled. Dressings clean, dry and intact. Calves were soft, nontender, neurovascularly intact. Toes were mobile. Hemovac drainage was 50 mL on the previous shift and his hinged knee brace was intact. Vital signs were stable. He was afebrile and he had been started on PT protocol for crutch training. He was to continue with partial weightbearing left lower extremity with a hinged knee brace on at all times. Hemovac was eventually removed that afternoon and the patient was otherwise remaining stable. He received his final antibiotics later that evening and was discharged to home on 02/01/2020. For further review, please see chart. LABORATORY AND X-RAY DATA: As per chart. DISCHARGE INSTRUCTIONS: The patient was discharged home in satisfactory condition on 02/01/2020. DIET: Regular. ACTIVITY: Follow Dr. Yuan's instructions as noted. Follow up with Dr. Yuan in 1-2 weeks after surgery. The patient to call for appointment if one has not been made for you. DISCHARGE MEDICATIONS: Aspirin 81 mg p.o. daily. Suboxone was discontinued and pain medications were ordered by Dr. Yuan through the office for the patient.
--- NOTE | 2020-02-06 12:59 | Discharge Summary ---
Date of Service February 06, 2020 Admission HPI Per Admitting Provider Mr. Escalera is a 35-year-old male who was inflating a tire this afternoon when the tire over pressurized and blew off of the rim. The rim impacted the medial aspect of his left knee. He had a deep laceration there. He presented to the emergency room for further evaluation and care. The emergency department staff consulted orthopedics for further management. Principal Diagnosis Left knee open laceration with open knee joint, open osteochondral fracture of medial femoral condyle, and disruption of vastus medialis. Discharge Data Allergies Allergy/AdvReac Type Severity Reaction Status Date / Time brompheniramine Allergy Unknown Verified 01/31/20 12:44 Penicillins Allergy Unknown unknown Verified 01/31/20 12:44 phenylpropanolamine Allergy Unknown Verified 01/31/20 12:44 Consultations 01/31/20 13:56 Consult Orthopedic Surgery Stat 01/31/20 18:38 Consult Case Management - Discharge Planning Routine Procedures Performed Operation Date: 01/31/20 09:40 Actual Procedures s Irrigation and Debridement of Open Fracture Left Knee; (Left) - Andrew Yuan M.D. p Repair of Vastus Medialis(Left) - Andrew Yuan M.D. Ordered Studies 01/31/20 12:42 CT knee LT wo con Stat Hospital Course (1) Laceration of knee, left: He was taken to the operating room on the date of admission where he underwent the above-mentioned left knee irrigation and debridement, repair of his vastus medialis, and washout of his open osteochondral fracture of the medial femoral condyle. He tolerated the procedure well and was transferred up to the general orthopedic surgery floor in stable condition. Perioperative antibiotic coverage was initiated with Ancef 2 g every 8 hours and continued for 24 hours postoperatively for his open fracture. He had minimal output from his Hemovac drain, and this was pulled on postoperative day 1. He was placed in a hinged knee brace with range of motion restricted from 0 to 40 degrees. His pain was well-controlled on oral pain medications on postoperative day 1, and he was determined ready safe and ready for discharge to home. Total Time Total Time Spent Total Time Spent (In Minutes): 5 Discharge Plan Discharge Items Patient Disposition: Home - Self-Care Reason For Visit: LEFT KNEE INJURY Discharge Diagnosis: Laceration of Left Knee with open knee joint, Disruption of Vastus Medialis, and Open Osteochondral Fracture of Medial Femoral Condyle Condition on Discharge: Good Activity: Per Instructions section Non-emergency contact: Surgeon Call non-emergency contact if: your pain is not controlled, your temperature is above 101.5, your wound has increased redness and your wound has increased drainage Follow-up/Referrals: Andrew Yuna M.D. [Physician] - PCP,NO [Primary Care Provider] - Diet: Regular Addtl Attending Provider Instructions: See instructions below Addtl Land Surveyor Provider Instructions: Things to Watch Out For -Nausea and sometimes vomiting is common side effect of anesthesia. Go easy with eating for the first day after your surgery. Drink non-carbonated fluids like Gatorade or water. Eat bland foods such as crackers. If these things go down easily, you may progress to more normal foods. -Go to the Emergency Room if you have sudden onset of chest pain, shortness of breath, or uncontrollable pain. -Call the clinic immediately if you have a sudden increase in the amount of wound drainage or the drainage becomes thick, yellow or green, or foul-smelling. -For routine questions, call the clinic at [phone] during regular business hours (8am-5pm). For urgent issues after regular business hours, you may call the clinic to be connected to the on-call physician. Dressings -Keep your dressings clean, dry, and in place for 4 days. After 4 days, you may remove the dressing and cover the incision with a new clean dressing. Be sure to wash your hands thoroughly before touching your incisions. Apply a new dressing daily thereafter. -You may begin showering after your first dressing change (4 days after surgery). You may let the water run BRIEFLY over the incision, but do not soak the incision in the bathtub or pool for 2 weeks. You may also gently clean the incision with mild soap and water; pat the incision dry after cleaning-do not rub the incision. -You may use an antibiotic ointment (Bacitracin, Polysporin) if desired, but this is not necessary. Hinged Knee Brace -Keep the hinged knee brace in place at all times. -You may bend your knee from 0-40 degrees within the limits of the brace settings ONLY when laying in bed. -You may bear partial weight on your operative leg ONLY with knee hinged knee brace LOCKED IN FULL EXTENSION. Straighten your leg fully while in bed, then use the small red tabs on either hinge to lock the hinge in full extension. Only then you may stand and bear weight through the leg. Pain Medicines -You have been prescribed an anti-inflammatory (Motrin/ibuprofen) and a non- narcotic pain medicine (Tylenol/acetaminophen). These are your primary pain medications. Take them each every 6 hours as instructed. It is recommended that you stagger these medicines every 3 hours (i.e. take ibuprofen at 8:00 am, then acetaminophen at 11:00 am, then ibuprofen at 2:00 pm, etc) -DO NOT take any additional anti-inflammatories (Advil, Aleve/naproxen, Mobic/meloxicam, Celebrex) or any additional Tylenol/acetaminophen products with these prescribed medications. -You have also been prescribed an additional narcotic pain medication (oxycodone/tramadol). Take this medicine ONLY for breakthrough pain not controlled by the ibuprofen and acetaminophen. -Do not drive or operate heavy machinery while taking the narcotic medication. -Common side effects of narcotic pain medicines include itching, nausea, constipation, and feeling "loopy". However, if you develop a rash or hives, stop taking the medicine and call the clinic. If you develop swelling in your throat or difficulty breathing, go to the Emergency Room or call 911 IMMEDIATELY. -You may take over the counter stool softeners if needed for constipation. -Some of these medications will be escribed to your pharmacy. Others may be over the counter. Regional Nerve Blocks -If you were given a regional nerve block for your surgery, take a dose of pain medicine BEFORE the block wears off (either before you go to bed or when you FIRST start feeling sensation return). Do not wait; the block will wear off fairly abruptly and cause a significant increase in your pain level. -Nerve blocks usually wear off after about 12 hours, but they can last as long as 72 hours. Ice Cooling Sleeve -You may use an ice pack or cooling sleeve to reduce pain and inflammation. You should use it 20-30 minutes at a time for the first 1-2 weeks [address] a towel between the sleeve and your skin to prevent frostbite. -About 2 weeks after your surgery, you should start using heat to loosen up your knee prior to doing your stretching exercises, then use the cooling sleeve after your exercises are complete to reduce swelling and pain. You will need to see your Primary Care Physician to renew your blood pressure medication as soon as possible. Pending Studies at Discharge: No Stand-Alone Forms: [facility], Smoking Cessation Medications and DC Order Prescriptions: New aspirin [Enteric Coated Aspirin] 81 mg tablet,delayed release (DR/EC) 81 mg PO DAILY 30 Days Qty: 30 RF: 0 Discontinued buprenorphine-naloxone 8-2 mg Tablet, Sublingual 1 tab SUBLINGUAL DAILY RF: 0 Discharge Orders: Discharge Order (Routine); Ordered 02/01/20 Ordered By: Ari García Admission Data Admit Date/Time: 01/31/20 18:38 Attending Provider: Andrew Yuan Admit Provider: Andrew Yuan Primary Care Provider: PCP,NO Other Providers: Andrew Yuan Other Interventions: Discharge Summary Assessment (RN) Last Done: 02/01/20 16:11 DC Date/Time DO NOT enter until pt leaves facility: 02/01/20 17:01
== END 2020-02-01 17:01 | disposition home or self-care (01) ==
LOC: ED 11:33 → 3E 16:22 → OR 16:22